=== PATIENT | male | born 1965 | race Caucasian/White ===

== ENCOUNTER → 2023-12-01 | Outpatient (CLI) | payer BC ==
[2023-12-01 09:29] LABS: ALT 14 U/L (4-49); AST 15 U/L (17-59); African American GFR (CKD) 16 (>60 ml/min/1.73 sqM); Albumin 3.5 g/dL (3.5-5.0); Albumin/Globulin Ratio 1.3; Alkaline Phosphatase 135 U/L (38-126); Anion Gap 14 mmol/L; Blood Urea Nitrogen 55 mg/dL (9-20); Calcium 8.7 mg/dL (8.4-10.2); Carbon Dioxide 19 mmol/L (22-30); Chloride 106 mmol/L (98-107); Globulin 2.8 g/dL; Glucose 168 mg/dL (74-99); Magnesium 1.9 mg/dL (1.6-2.3); Non-African American GFR(CKD) 14 (>60 ml/min/1.73 sqM); Potassium 4.5 mmol/L (3.5-5.1); Sodium 139 mmol/L (137-145); Total Bilirubin 0.8 mg/dL (0.2-1.3); Total Protein 6.3 g/dL (6.3-8.2)
[2023-12-01 09:34] LABS: NT-Pro-B-Type Natriuretic Pept 12800 pg/mL
[2023-12-01 11:12] LABS: HCT 37.8 % (39.6-50.0); HGB 11.5 g/dL (13.0-17.0); MCH 26.8 pg (27.0-32.0); MCHC 30.4 g/dL (32.0-37.0); MCV 88.1 FL (80.0-97.0); Mean Platelet Volume 11.8 FL (9.5-12.2); NRBC Per 100 WBC 0 X 10*3/uL (0.00-0.01); Platelet Count 90 X 10*3/uL (140-440); RBC 4.29 X 10*6/uL (4.40-5.60); RDW 13.9 % (11.5-14.5); WBC 9.04 X 10*3/uL (4.50-10.00)
[2023-12-01 16:16] LABS: LDL Cholesterol,Calculated 71.4 mg/dL (0.0-131.0)
== END | disposition home or self-care (01) ==
LOC: LABPAT 07:49
PROVIDERS: ATTEND Student in an Organized Health Care Education/Training Program
DX: Z01.812 Encounter for preprocedural laboratory examination (principal); R07.9 Chest pain, unspecified; R06.02 Shortness of breath
CPT/HCPCS: 36415; 80053; 80061; 83036; 83735; 83880; 84443; 85027

== ENCOUNTER → 2023-12-01 | Outpatient (CLI) | payer BC | END | disposition home or self-care (01) | LOC: LABWHC1 07:47 | PROVIDERS: ATTEND Student in an Organized Health Care Education/Training Program | DX: Z53.9 Procedure and treatment not carried out, unspecified reason (principal) ==

== ENCOUNTER 2023-12-16 11:54 | Inpatient (IN) | payer BC ==
[2023-12-16 12:26] LABS: Basophils # (A) 0.1 k/uL (0-0.2); Basophils % (A) 1 %; Eosinophils # (A) 0.2 k/uL (0-0.7); Eosinophils % (A) 3 %; HCT 36.1 % (39.0-53.0); HGB 11.3 gm/dL (13.0-17.5); Hypochromasia Slight; Lymphocytes # (A) 1.7 k/uL (1.0-4.8); Lymphocytes % (A) 20 %; MCH 27.4 pg (25.0-35.0); MCHC 31.4 g/dL (31.0-37.0); MCV 87.3 fL (80.0-100.0); Mean Platelet Volume 7.9; Monocytes # (A) 0.5 k/uL (0-1.0); Monocytes % (A) 6 %; Neutrophils # (A) 5.9 k/uL (1.3-7.7); Neutrophils % (A) 69 %; Platelet Count 196 k/uL (150-450); RBC 4.14 m/uL (4.30-5.90); RDW 14.5 % (11.5-15.5); WBC 8.5 k/uL (3.8-10.6)
[2023-12-16] MEDS ORDERED: SODIUM CHLORIDE 0.9% 500 ML 500 ML IV STA (12:32)
--- NOTE | 2023-12-16 12:43 | ED ---
Recheck HPI - General Chief Complaint: Recheck/Abnormal Lab/Rx Stated Complaint: abn labs Time Seen by Provider: 12/16/23 12:31 Source: patient, RN notes reviewed, old records reviewed Mode of arrival: ambulatory Limitations: no limitations - History of Present Illness Initial Comments: This is a 58-year-old male to the ER for evaluation today. Patient presents today for evaluation regards to abnormal outpatient lab testing. Patient does have elevated renal function and does have history of blood pressure diabetes. Patient Dese for abnormal outpatient lab tests. He is asymptomatic but states he has been feeling terrible lately Complaint: abnormal lab -: unknown Context: called for abnormal lab result Associated Symptoms: none Treatments Prior to Arrival: other - Related Data Home Medications Medication Instructions Recorded Confirmed Atorvastatin [Lipitor] 40 mg PO DAILY 12/14/23 12/16/23 Metoprolol Succinate [Metoprolol 25 mg PO DAILY 12/14/23 12/16/23 Succinate ER] Aspirin EC [Ecotrin] 650 mg PO ONCE 12/16/23 12/16/23 Previous Rx's Medication Instructions Recorded Calcium Acetate [PhosLo] 667 mg PO TID-W/MEALS 30 Days #90 12/20/23 tab Furosemide [Lasix] 20 mg PO DAILY 90 Days #90 tab 12/20/23 Insulin Glargine,Hum.rec.anlog 10 units SQ DAILY 90 Days #90 each 12/20/23 [Toujeo Solostar] Ipratropium-Albuterol Nebulize 3 ml INHALATION RT-QID 30 Days 12/20/23 [Duoneb 0.5 mg-3 mg/3 ml Soln] #120 each Isosorbide Mononitrate ER [Imdur] 30 mg PO DAILY 30 Days #30 tab 12/20/23 Pantoprazole [Protonix] 40 mg PO AC-BID 30 Days #60 tab 12/20/23 Sodium Bicarbonate Tab 650 mg PO BID 90 Days #180 tab 12/20/23 hydrALAZINE HCL [Apresoline] 50 mg PO TID 30 Days #90 tab 12/20/23 Allergies Allergy/AdvReac Type Severity Reaction Status Date / Time No Known Allergies Allergy Verified 12/16/23 15:18 Review of Systems ROS Statement: Those systems with pertinent positive or pertinent negative responses have been documented in the HPI. ROS Other: All systems not noted in ROS Statement are negative. Past Medical History Past Medical History: Diabetes Mellitus, Hypertension Additional Past Medical History / Comment(s): SOB & tires easily. Fx. tibia, hx. of infection on back of neck- not sure what it was. History of Any Multi-Drug Resistant Organisms: None Reported Past Surgical History: No Surgical Hx Reported Additional Past Surgical History / Comment(s): [place] teeth, Past Anesthesia/Blood Transfusion Reactions: No Reported Reaction Past Psychological History: ADD/ADHD, PTSD Smoking Status: Never smoker Past Alcohol Use History: Occasional Past Drug Use History: None Reported - Past Family History Mother Family Medical History: No Reported History General Exam Limitations: no limitations General appearance: alert, in no apparent distress, anxious Head exam: Present: atraumatic, normocephalic, normal inspection Eye exam: Present: normal appearance, PERRL, EOMI. Absent: scleral icterus, conjunctival injection, periorbital swelling ENT exam: Present: normal exam, mucous membranes moist Neck exam: Present: normal inspection. Absent: tenderness, meningismus, lymphadenopathy Respiratory exam: Present: normal lung sounds bilaterally. Absent: respiratory distress, wheezes, rales, rhonchi, stridor Cardiovascular Exam: Present: regular rate, normal rhythm, normal heart sounds. Absent: systolic murmur, diastolic murmur, rubs, gallop, clicks GI/Abdominal exam: Present: soft, normal bowel sounds. Absent: distended, tenderness, guarding, rebound, rigid Extremities exam: Present: normal inspection, full ROM, normal capillary refill. Absent: tenderness, pedal edema, joint swelling, calf tenderness Back exam: Present: normal inspection Neurological exam: Present: alert, oriented X3, CN II-XII intact Psychiatric exam: Present: normal affect, normal mood Skin exam: Present: warm, dry, intact, normal color. Absent: rash Course Vital Signs 12/16/23 12/16/23 12/16/23 11:58 13:00 16:00 Temperature 98.5 F Pulse Rate 81 86 79 Respiratory 20 16 16 Rate Blood Pressure 141/74 145/80 152/92 O2 Sat by Pulse 97 98 98 Oximetry 12/16/23 12/16/23 17:00 21:00 Temperature Pulse Rate 75 84 Respiratory 16 18 Rate Blood Pressure 145/93 154/92 O2 Sat by Pulse 98 97 Oximetry - Reevaluation(s) Reevaluation #1: 12/16/23 15:38 medical record is reviewed Reevaluation #2: 12/16/23 15:38 patients sumptoms unchanged Reevaluation #3: 12/16/23 15:38 patient informed of results and questions answered Reevaluation #4: 12/16/23 13:27 Was pt. sent in by a medical professional or institution (, [facility], [facility]OL [facility]ER, urgent care, hospital, or jail...) When possible be specific @ -no Did you speak to anyone other than the patient for history (EMS, parent, family, police, friend...)? What history was obtained from this source @ -no Did you review nursing and triage notes (agree or disagree)? Why? @ -agree Are old charts reviewed (outside hosp., previous admission, EMS record, old EKG, old radiological studies, urgent care reports/EKG's, jail records)? Report findings @ -yes Differential Diagnosis (chest pain, altered mental status, abdominal pain women, abdominal pain men, vaginal bleeding, weakness, fever, dyspnea, syncope, headache, dizziness, GI bleed, back pain, seizure, CVA, palpatations, mental health, musculoskeletal)? @ -prior EKG interpreted by me (3pts min.). @ -yes X-rays interpreted by me (1pt min.). @ -yes negative for acute disease CT interpreted by me (1pt min.). @ -no U/S interpreted by me (1pt. min.). @ -no What testing was considered but not performed or refused? (CT, X-rays, U/S, labs)? Why? @ -none What meds were considered but not given or refused? Why? @ -none Did you discuss the management of the patient with other professionals (prof lomax i.e. , [facility], WOOL SAMPLER, lab, RT, psych nurse, social media assistant, organic chemistry professor, teacher, diplomatic officer, trimming caser)? Give summary @ -no Was smoking cessation discussed for >3mins.? @ -no Was critical care preformed (if so, how long)? @ -no Were there social determinants of health that impacted care today? How? (Homelessness, low income, unemployed, alcoholism, drug addiction, transportation, low edu. Level, literacy, decrease access to med. care, fci, rehab)? @ -none Was there de-escalation of care discussed even if they declined (Discuss DNR or withdrawal of care, Hospice)? DNR status @ -no What co-morbidities impacted this encounter? (DM, HTN, Smoking, COPD, CAD, Cancer, CVA, ARF, Chemo, Hep., AIDS, mental health diagnosis, sleep apnea, morbid obesity)? @ -none Was patient admitted / discharged? Hospital course, mention meds given and route, prescriptions, significant lab abnormalities, going to OR and other pertinent info. @ - 58 male with increasing worsening renal function. Patient sent to the ER for evaluation of abnormal outpatient lab testing and labs here in the emergency department are consistent with outpatient testing, patient will be admitted for nephrology evaluation and treatment Admitted Undiagnosed new problem with uncertain prognosis? @ -no Drug Therapy requiring intensive monitoring for toxicity (Heparin, Nitro, Insulin, Cardizem)? @ -no Were any procedures done? @ -no Diagnosis/symptom? @ -Acute kidney injury acute renal failure hypertension diabetes Acute, or Chronic, or Acute on Chronic? @ -Acute Uncomplicated (without systemic symptoms) or Complicated (systemic symptoms)? @ -Complicated Side effects of treatment? @ -no Exacerbation, Progression, or Severe Exacerbation? @ -exacerbation Poses a threat to life or bodily function? How? (Chest pain, USA, UT, pneumonia, PE, COPD, DKA, ARF, appy, cholecystitis, CVA, Diverticulitis, Homicidal, Suicidal, threat to staff... and all critical care pts) @ -yes with significant electrode abnormalities Reevaluation #5: Differential Weakness: Hypoglycemia, shock, sepsis, hyponatremia, anemia, infection, UT, ETOH, adverse medicine reaction, overdose, stroke, this is not meant to be an all-inclusive list. - Consultations Consultation #1: spoke w Dr Margarette vital for admission Medical Decision Making - Medical Decision Making 58 male with increasing worsening renal function. Patient sent to the ER for evaluation of abnormal outpatient lab testing and labs here in the emergency department are consistent with outpatient testing, patient will be admitted for nephrology evaluation and treatment - Lab Data Result diagrams: 12/21/23 06:15 12/21/23 06:15 Lab Results 12/16/23 12/16/23 12/16/23 Range/Units 12:19 12:19 12:19 WBC 8.5 (3.8-10.6) k/uL RBC 4.14 L (4.30-5.90) m/uL Hgb 11.3 L (13.0-17.5) gm/dL Hct 36.1 L (39.0-53.0) % MCV 87.3 (80.0-100.0) fL MCH 27.4 (25.0-35.0) pg MCHC 31.4 (31.0-37.0) g/dL RDW 14.5 (11.5-15.5) % Plt Count 196 (150-450) k/uL MPV 7.9 Neutrophils % 69 % Lymphocytes % 20 % Monocytes % 6 % Eosinophils % 3 % Basophils % 1 % Neutrophils # 5.9 (1.3-7.7) k/uL Lymphocytes # 1.7 (1.0-4.8) k/uL Monocytes # 0.5 (0-1.0) k/uL Eosinophils # 0.2 (0-0.7) k/uL Basophils # 0.1 (0-0.2) k/uL Hypochromasia Slight PT 10.1 (10.0-12.5) sec INR 0.9 (<1.2) APTT 24.2 (22.0-30.0) sec Sodium 136 L (137-145) mmol/L Potassium 5.2 H (3.5-5.1) mmol/L Chloride 110 H (98-107) mmol/L Carbon Dioxide 17 L (22-30) mmol/L Anion Gap 9 mmol/L BUN 65 H (9-20) mg/dL Creatinine 4.81 H (0.66-1.25) mg/dL Est GFR (CKD-EPI)AfAm 14 (>60 ml/min/1.73 sqM) Est GFR (CKD-EPI)NonAf 12 (>60 ml/min/1.73 sqM) Glucose 208 H (74-99) mg/dL Calcium 8.2 L (8.4-10.2) mg/dL Phosphorus (2.5-4.5) mg/dL Magnesium 2.1 (1.6-2.3) mg/dL Total Bilirubin 0.7 (0.2-1.3) mg/dL AST 17 (17-59) U/L ALT 16 (4-49) U/L Alkaline Phosphatase 106 (38-126) U/L Troponin I (0.000-0.034) ng/mL NT-Pro-B Natriuret Pep 81123 pg/mL Total Protein 6.0 L (6.3-8.2) g/dL Albumin 3.2 L (3.5-5.0) g/dL 12/16/23 12/16/23 Range/Units 12:19 12:32 WBC (3.8-10.6) k/uL RBC (4.30-5.90) m/uL Hgb (13.0-17.5) gm/dL Hct (39.0-53.0) % MCV (80.0-100.0) fL MCH (25.0-35.0) pg MCHC (31.0-37.0) g/dL RDW (11.5-15.5) % Plt Count (150-450) k/uL MPV Neutrophils % % Lymphocytes % % Monocytes % % Eosinophils % % Basophils % % Neutrophils # (1.3-7.7) k/uL Lymphocytes # (1.0-4.8) k/uL Monocytes # (0-1.0) k/uL Eosinophils # (0-0.7) k/uL Basophils # (0-0.2) k/uL Hypochromasia PT (10.0-12.5) sec INR (<1.2) APTT (22.0-30.0) sec Sodium (137-145) mmol/L Potassium (3.5-5.1) mmol/L Chloride (98-107) mmol/L Carbon Dioxide (22-30) mmol/L Anion Gap mmol/L BUN (9-20) mg/dL Creatinine (0.66-1.25) mg/dL Est GFR (CKD-EPI)AfAm (>60 ml/min/1.73 sqM) Est GFR (CKD-EPI)NonAf (>60 ml/min/1.73 sqM) Glucose (74-99) mg/dL Calcium (8.4-10.2) mg/dL Phosphorus 5.7 H (2.5-4.5) mg/dL Magnesium (1.6-2.3) mg/dL Total Bilirubin (0.2-1.3) mg/dL AST (17-59) U/L ALT (4-49) U/L Alkaline Phosphatase (38-126) U/L Troponin I 0.014 (0.000-0.034) ng/mL NT-Pro-B Natriuret Pep pg/mL Total Protein (6.3-8.2) g/dL Albumin (3.5-5.0) g/dL - EKG Data -: EKG Interpreted by Me (EKG is sinus 76 NC 146 QRS 110 QTc 440) - Radiology Data Radiology results: report reviewed (Chest x-ray is negative for acute disease), image reviewed Disposition Clinical Impression: Renal failure, ARF (acute renal failure), MAT (acute kidney injury), Hyperkalemia Disposition: ADMITTED IP TO THIS [facility] Condition: Fair Is patient prescribed a controlled substance at d/c from ED?: No Time of Disposition: 15:00
[2023-12-16 12:57] LABS: ALT 16 U/L (4-49); AST 17 U/L (17-59); African American GFR (CKD) 14 (>60 ml/min/1.73 sqM); Albumin 3.2 g/dL (3.5-5.0); Alkaline Phosphatase 106 U/L (38-126); Anion Gap 9 mmol/L; Blood Urea Nitrogen 65 mg/dL (9-20); Calcium 8.2 mg/dL (8.4-10.2); Carbon Dioxide 17 mmol/L (22-30); Chloride 110 mmol/L (98-107); Glucose 208 mg/dL (74-99); INR 0.9 (<1.2); Magnesium 2.1 mg/dL (1.6-2.3); Non-African American GFR(CKD) 12 (>60 ml/min/1.73 sqM); Partial Thromboplastin Time 24.2 sec (22.0-30.0); Potassium 5.2 mmol/L (3.5-5.1); Prothrombin Time 10.1 sec (10.0-12.5); Sodium 136 mmol/L (137-145); Total Bilirubin 0.7 mg/dL (0.2-1.3)
[2023-12-16 13:05] LABS: NT-Pro-B-Type Natriuretic Pept 13200 pg/mL
--- NOTE | 2023-12-16 13:58 | XR ---
EXAMINATION TYPE: XR chest 2V DATE OF EXAM: 12/16/2023 COMPARISON: NONE TECHNIQUE: PA and lateral views submitted. HISTORY: Difficulty in breathing FINDINGS: The lungs are clear and there is no pneumothorax, pleural effusion, or focal pneumonia. Heart size normal and no overt failure. Osseous structures demonstrate hypertrophic and degenerative changes of the spine. IMPRESSION: 1. No acute process.
[2023-12-16] MEDS ORDERED: NALOXONE 0.4 MG/ML 1 ML VIAL IV PRN (15:35)
[2023-12-16] MEDS ORDERED: NON FORMULARY DRUG (Aspirin Ec 325 MG Tab) PO SCH (17:00)
[2023-12-16] MEDS: SODIUM CHLORIDE 0.9% 1,000 ML IV SCH ×2 (18:33→23:23)
--- NOTE | 2023-12-16 19:58 | CT ---
EXAMINATION TYPE: CT chest wo con DATE OF EXAM: 12/16/2023 COMPARISON: None HISTORY: pleural effusion CT DLP: 739.[address] of the chest was performed with lung and mediastinal window settings submitted. The la ck of contrast limits evaluation of the vascular, mediastinal and parenchymal structures including th e upper abdomen. LUNGS: The lungs are clear and free of infiltrate. No atelectasis. No pulmonary nodule or mass is de tected. Small bilateral pleural effusions noted right greater than left. Maximal right-sided AP dimen tianna of 1.5 cm in maximal left-sided AP dimension of [address] evidence of interstitial lung diseas e. MEDIASTINUM/LEANDRO: Thoracic aorta is of normal caliber with limited evaluation given lack of contrast . The heart is not enlarged. No evidence for mediastinal mass. No lymph nodes greater than 1cm. UPPER ABDOMEN: No significant abnormality is seen. OTHER: No significant other abnormality. IMPRESSION: 1. Small bilateral pleural effusions.
[2023-12-16 22:04] LABS: Glucose,Whole Blood 153 mg/dL (70-110)
--- NOTE | 2023-12-17 01:38 | HP ---
HISTORY AND PHYSICAL HISTORY OF PRESENT ILLNESS: This is a 58-year-old in the emergency room for evaluation for abnormal outpatient testing, elevated renal function, history of blood pressure, diabetes, and no outpatient test. He is asymptomatic. Home medications are Lipitor, metoprolol, Demadex, metformin, Ecotrin, Cozaar. Allergies are negative. He has an elevated BNP, real high, short of breath, tires easy. He has a history of ADHD and PTSD. ALLERGIES: Negative. FAMILY HISTORY: Mother is negative. PHYSICAL EXAMINATION: GENERAL: Alert, in no acute distress. HEENT: Normocephalic, atraumatic. LUNGS: Normal breath sounds. Decreased breath sounds. CARDIOVASCULAR: S1, S2. ABDOMEN: Soft, nontender. HEENT: Pupils equal, round, reactive. Cranial nerves intact. NEUROLOGIC: Alert and orient x3. VITAL SIGNS: Blood pressure 141/145, respiratory rate 48, temp 98.5, pulse is 16-20. Fair mood and affect. The patient is admitted with acute renal insufficiency, acute on chronic, diabetes, hypertension, hyperkalemia, acute on chronic anemia with hematocrit of 4.81, hyperphosphatemia, acute renal failure, acute kidney injury, hyperkalemia, sinus rhythm. Continue current treatments. Follow up in THE next 24 to 48 hours. Workup progressing. MMODL / IJN: [id number] /
[2023-12-17 07:26] LABS: Glucose,Whole Blood 130 mg/dL (70-110)
[2023-12-17] MEDS ORDERED: LOSARTAN 25 MG TAB PO SCH (09:00)
[2023-12-17] MEDS ORDERED: TORSEMIDE 20 MG TAB PO SCH (09:00)
--- NOTE | 2023-12-17 10:05 | CA ---
Transthoracic Echo Report Name: Seferino Byrd Age: 58 Gender: M : 1965 Exam Date: 12/16/2023 18:31 Exam Location: [facility] Ht (in): 73 Wt (lb): 244 Ordering Physician: Cecil Pfeiffer MD Attending/Referring Phys: Digital Pre Press Operator Mariam Roland RD Procedure CPT: Indications: chf Cardiac Hx: Technical Quality: Fair Contrast 1: Definity Total Dose (mL): 2 Contrast 2: Total Dose (mL): MEASUREMENTS (Male / Female) Normal Values 2D ECHO LV Diastolic Diameter PLAX 5.0 cm 4.2 - 5.9 / 3.9 - 5.3 cm LV Systolic Diameter PLAX 4.7 cm IVS Diastolic Thickness 1.2 cm 0.6 - 1.0 / 0.6 - 0.9 cm LVPW Diastolic Thickness 1.3 cm 0.6 - 1.0 / 0.6 - 0.9 cm LV Relative Wall Thickness 0.5 RV Internal Dim ED PLAX 2.8 cm LVOT Diameter 1.9 cm Aortic Root Diameter 2.9 cm LA Systolic Diameter LX 3.8 cm 3.0 - 4.0 / 2.7 - 3.8 cm LV Diastolic Volume MOD BP 107.1 cm??? 67 - 155 / 56 - 104 cm??? LV Systolic Volume MOD BP 69.7 cm??? - 58 / 19 - 49 cm??? LV Ejection Fraction MOD BP 34.9 % >= 55 % LV Cardiac Index MOD BP 1237.8 cm???/min???m??? LV Diastolic Volume MOD 4C 130.1 cm??? LV Systolic Volume MOD 4C 78.2 cm??? LV Ejection Fraction MOD 4C 39.9 % LV Cardiac Index MOD 4C 1720.1 cm???/min???m??? LV Diastolic Length 4C 8.2 cm LV Systolic Length 4C 7.4 cm LV Diastolic Volume MOD 2C 71.2 cm??? LV Systolic Volume MOD 2C 55.7 cm??? LV Ejection Fraction MOD 2C 21.8 % LV Cardiac Index MOD 2C 513.3 cm???/min???m??? LV Diastolic Length 2C 6.6 cm LV Systolic Length 2C 6.6 cm LA Volume 67.7 cm??? 18 - 58 / 22 - 52 cm??? LA Volume Index 28.0 cm???/m??? 16 - 28 cm???/m??? DOPPLER AV Peak Velocity 75.6 cm/s AV Peak Gradient 2.3 mmHg LVOT Peak Velocity 69.8 cm/s LVOT Peak Gradient 2.0 mmHg LVOT Velocity Time Integral 14.3 cm LVOT Stroke Volume 41.6 cm??? LVOT Stroke Volume Index 17.8 ml/m??? LVOT Cardiac Index 1376.1 cm???/min???m??? AV Area Cont Eq pk 2.7 cm??? MV Peak Velocity 104.2 cm/s MV Peak Gradient 4.3 mmHg MV Mean Velocity 50.4 cm/s MV Mean Gradient 1.3 mmHg MV Velocity Time Integral 26.7 cm MR Peak Velocity 433.3 cm/s MR Peak Gradient 75.1 mmHg Mitral E Point Velocity 100.9 cm/s Mitral A Point Velocity 43.0 cm/s Mitral E to A Ratio 2.3 MV Deceleration Time 153.1 ms MV E' Velocity 5.9 cm/s Mitral E to MV E' Ratio 17.1 TR Peak Velocity 267.3 cm/s TR Peak Gradient 28.6 mmHg Right Ventricular Systolic Press 33.6 mmHg PV Peak Velocity 56.5 cm/s PV Peak Gradient 1.3 mmHg FINDINGS Left Ventricle Increased LV size. Normal LV wall thickness. Severe global LV systolic dysfunction. LVEF estimated at 20-25%. Grade III diastolic dysfunction Right Ventricle Normal right ventricular size. RVSP= 34mmHg. Right Atrium Moderate RV dilatation Left Atrium Moderate LA dilatation. Elevated LA pressures Mitral Valve Structurally normal mitral valve. Moderate functional MR Aortic Valve Trileaflet aortic valve. No aortic stenosis. No aortic regurgitation. Tricuspid Valve Structurally normal tricuspid valve. Mild TR. Pulmonic Valve Pulmonic valve not well visualized. Mild PI. Pericardium No pericardial effusion Aorta Normal size aortic root CONCLUSIONS Severe LV systolic dysfunction LVEF estimated at 20-25% Mildly increased LV size Moderate biatrial dilatation. Elevated LA pressures Moderate functional MR Previewed by: Dr Florentino Sanchez (Electronically Signed) Final Date: 17 December 2023 10:04
[2023-12-17] MEDS: METOPROLOL SUCCINATE (ER) 25 MG TAB.ER.24H PO SCH (10:42)
[2023-12-17] MEDS: ATORVASTATIN 40 MG TAB PO SCH (10:42)
[2023-12-17] MEDS ORDERED: hydrALAZINE HCL 20 MG/ML 1 ML VIAL IVP PRN (11:43)
--- NOTE | 2023-12-17 11:44 | P.NPCON ---
History of Present Illness - Reason for Consult acute renal failure - History of Present Illness Reason for consultation: Acute kidney injury History of present illness: Patient is a 58-year-old male seen in renal consultation for acute kidney injury. Unknown baseline renal function. Patient states he did not see a physician for several years. He recently got and got insurance through his . Patient went to his [facility] and noticed exertional dyspnea even with walking short distances while in [place]. He was evaluated at an urgent care clinic and was referred to see cardiology. He was scheduled to get a cardiac catheterization done but it was canceled because blood work revealed a cute kidney injury. He was subsequently admitted to the hospital. Creatinine this admission has been 4.8. He denies use of nonsteroidals. He does have long-standing history of diabetes. He was on losartan and metformin outpatient which are both currently held. He admits to good urine output. No hematuria or dysuria. He does admit to edema in his ankles. Denies family history of renal disease. Denies history of coronary artery disease. Oral intake is good. Patient's echocardiogram shows ejection fraction of 20-25%. Small bilateral pleural effusions noted on chest CT. He is currently on IV fluids. Vital signs are stable. General: No acute distress. HEENT: Head exam is unremarkable. LUNGS: No audible rhonchi or wheezes. HEART: Rate and Rhythm are regular. ABDOMEN: Nontender. EXTREMITITES: 1+ edema. Past Medical History Past Medical History: Diabetes Mellitus, Hypertension Additional Past Medical History / Comment(s): SOB & tires easily. Fx. tibia, hx. of infection on back of neck- not sure what it was. History of Any Multi-Drug Resistant Organisms: None Reported Past Surgical History: No Surgical Hx Reported Additional Past Surgical History / Comment(s): [place] teeth, Past Anesthesia/Blood Transfusion Reactions: No Reported Reaction Past Psychological History: ADD/ADHD, PTSD Additional Psychological History / Comment(s): Hx. of Smoking Status: Never smoker Past Alcohol Use History: Occasional Past Drug Use History: None Reported - Past Family History Mother Family Medical History: No Reported History Medications and Allergies Home Medications Medication Instructions Recorded Confirmed Type Atorvastatin [Lipitor] 40 mg PO DAILY 12/14/23 12/16/23 History Metoprolol Succinate [Metoprolol 25 mg PO DAILY 12/14/23 12/16/23 History Succinate ER] Torsemide [Demadex] 20 mg PO Q2D 12/14/23 12/16/23 History metFORMIN HCL 500 mg PO BID 12/14/23 12/16/23 History Aspirin EC [Ecotrin] 650 mg PO ONCE 12/16/23 12/16/23 History Losartan [Cozaar] 25 mg PO DAILY 12/16/23 12/16/23 History Allergies Allergy/AdvReac Type Severity Reaction Status Date / Time No Known Allergies Allergy Verified 12/16/23 15:18 Physical Exam Vitals: Vital Signs Temp Pulse Pulse Resp BP BP Pulse Ox 12/17/23 07:25 98.2 F 74 16 154/88 96 12/17/23 01:30 97.9 F 80 17 148/89 94 L 12/16/23 23:20 97.7 F 82 16 152/84 95 12/16/23 21:00 84 18 154/92 97 12/16/23 17:00 75 16 145/93 98 12/16/23 16:00 79 16 152/92 98 12/16/23 13:00 86 16 145/80 98 12/16/23 11:58 98.5 F 81 20 141/74 97 Intake and Output 12/16/23 12/17/23 12/17/23 22:59 06:59 14:59 Other: Weight 110.677 kg Results - Lab Results Most recent lab results Calcium 8.2 mg/dL (8.4-10.2) L 12/16/23 12:19 Phosphorus 5.7 mg/dL (2.5-4.5) H 12/16/23 12:32 Magnesium 2.1 mg/dL (1.6-2.3) 12/16/23 12:19 12/16/23 12:19 12/16/23 12:19 Assessment and Plan Plan: Assessment: 1. Acute kidney injury secondary to ATN secondary to cardiorenal syndrome versus underlying chronic kidney disease. Unknown baseline renal function. Creatinine this admission 4.8. Patient did not see a physician for several years. 2. Acute on chronic systolic CHF with ejection fraction of 25-30%. 3. Volume overload. 4. Diabetes mellitus. 5. Metabolic acidosis secondary to acute kidney injury. 6. Benign hypertension. Plan: Stop IV fluids. Add IV Lasix 60 mg twice daily. Metoprolol also started. Check UA. Check renal ultrasound. Check bladder scan to make sure no urinary retention. Add oral bicarb. Continue to monitor renal function and urine output. Continue to assess daily for need for renal replacement therapy. Thank you for the consultation. I will continue to follow this patient with you during his hospital stay.
[2023-12-17 11:53] LABS: Glucose,Whole Blood 146 mg/dL (70-110)
[2023-12-17 12:44] LABS: Basophils # (A) 0.08 X 10*3/uL (0.00-0.10); Eosinophils # (A) 0.15 X 10*3/uL (0.04-0.35); Eosinophils % (A) 1.9 %; HCT 39.3 % (39.6-50.0); HGB 11.9 g/dL (13.0-17.0); Lymphocytes # (A) 1.43 X 10*3/uL (0.90-5.00); Lymphocytes % (A) 18.5 %; MCH 26.6 pg (27.0-32.0); MCHC 30.3 g/dL (32.0-37.0); MCV 87.7 FL (80.0-97.0); Mean Platelet Volume 11.5 FL (9.5-12.2); Monocytes # (A) 0.57 X 10*3/uL (0.20-1.00); Monocytes % (A) 7.4 %; NRBC Per 100 WBC 0 X 10*3/uL (0.00-0.01); Neutrophils # (A) 5.49 X 10*3/uL (1.80-7.70); Neutrophils % (A) 70.9 %; Platelet Count 128 X 10*3/uL (140-440); RBC 4.48 X 10*6/uL (4.40-5.60); RDW 14.4 % (11.5-14.5); WBC 7.74 X 10*3/uL (4.50-10.00)
[2023-12-17 12:46] LABS: ALT 11 U/L (10-49); AST 10 U/L (14-35); Albumin 3.6 g/dL (3.8-4.9); Albumin/Globulin Ratio 1.64 Ratio (1.60-3.17); Alkaline Phosphatase 105 U/L (41-126); BUN/Creat Ratio 12.35 Ratio (12.00-20.00); Blood Urea Nitrogen 59.3 mg/dL (9.0-27.0); Calcium 8.8 mg/dL (8.7-10.3); Carbon Dioxide 19.3 mmol/L (21.6-31.8); Chloride 108 mmol/L (96-109); Globulin 2.2 g/dL (1.6-3.3); Glucose 134 mg/dL (70-110); Phosphorus 5.5 mg/dL (2.4-5.1); Potassium 4.7 mmol/L (3.5-5.5); Sodium 139 mmol/L (135-145); Total Bilirubin 0.6 mg/dL (0.3-1.2); Total Protein 5.8 g/dL (6.2-8.2)
[2023-12-17] MEDS: FUROSEMIDE 10 MG/ML 10 ML VIAL IV SCH ×2 (12:54→20:35)
[2023-12-17] MEDS: SODIUM BICARBONATE TAB 650 MG TAB PO SCH ×2 (13:30→20:35)
--- NOTE | 2023-12-17 14:19 | US ---
EXAMINATION TYPE: US renals and bladder DATE OF EXAM: 12/17/2023 COMPARISON: NONE CLINICAL INDICATION: Male, 58 years old with history of mat; MAT EXAM MEASUREMENTS: Right Kidney: 12.1x5.6x5.6 cm Left Kidney: 11.7x6.3x4.5 cm Right Kidney: 0.5cm stone vs. calcified vessel noted Left Kidney: small 2.0x1.8x1.7cm cystic area measured at lateral/mid kidney Bladder: wnl Bilateral Jets seen: Yes No nephrolithiasis is seen. The urinary bladder is anechoic. Bilateral ureteral jets are seen. IMPRESSION: Small cyst in the left kidney is noted. Renal calculus versus calcified vessel.
[2023-12-17 17:15] LABS: Glucose,Whole Blood 171 mg/dL (70-110)
[2023-12-17 18:19] LABS: Appearance,Urine Clear (Clear); Bilirubin,Urine Negative (Negative); Blood,Urine Trace (Negative); Color,Urine Colorless; Glucose,Urine (UA) 1+ (Negative); Ketones,Urine Negative (Negative); Leukocyte Esterase,Urine Negative (Negative); Mucus,Urine Rare /hpf; Nitrite,Urine Negative (Negative); PH, Urine 5.5 (5.0-8.0); Protein,Urine 1+ (Negative); RBC,Urine 1 /hpf (0-5); Specific Gravity,Urine 1.005 (1.001-1.035); Squamous Epithelial Cell,Urine <1 /hpf (0-4); Urobilinogen,Urine <2.0 mg/dL (<2.0)
--- NOTE | 2023-12-17 18:32 | P.CRDCN ---
History of Present Illness Consult date: 12/17/23 History of present illness: HISTORY OF PRESENTING ILLNESS 58 year old past medical history of hypertension, type 2 diabetes who saw me in clinic in August with worsening fatigue and shortness of breath. His echocardiogram at that time showed an EF of 40%. I started him on losartan 25 mg and Lasix 40 mg which helped patient's clinical symptoms. On the follow-up appointment in late October we decided on proceeding with a heart catheteriza tion procedure because of abnormally low EF. At the time of prescribing him losartan and Lasix as recommended to obtain his BNP levels which patient never performed. On his follow-up appointment I gave him another prescription. His BMP levels checked. This was done on 12/01/2023. Labs at that time showed severely reduced GFR with creatinine of 4. These results were never indicated to me. On his day of heart catheterization on 12/16/2023 I reviewed the patient's labs with a creatinine of 4. Repeat creatinine was at 4. Due to this I recommended patient go to the ER and get admitted. Patient reports that he still making urine. He denies having any active chest pain chest pressure or increased worsening shortness of breath than before. An echocardiogram performed on this admission shows an EF of 20-25%, with evidence of increased LA pressures Creatinine 4.8, BUN 59, phosphorous 5.5, hemoglobin 11.9, REVIEW OF SYSTEMS 14 point review of system is negative except what is mentioned above in HPI. PHYSICAL EXAMINATION Vital signs reviewed. Head: Normocephalic. Eyes: Sclerae nonicteric. Neck: Brisk carotid upstroke, mildly elevated. Lungs: Mild crackles in bilateral bases Heart: Regular rate and rhythm, S1-S2, no S3, no murmur or rub. Abdomen: Soft nontender, distended abdomen. Extremities: No edema, intact distal pulses. Neuro: Alert, oritented, no focal deficits ASSESSMENT MAT with ATN Suspect some competent CKD from long-standing diabetes and hypertension Acute on chronic HFrEF, EF 25%, mild to moderate volume overloaded, and NYHA class III Small pericardial effusion Essential hypertension Type II Diabetes Dyslipidemia Suspected CAD, as the etiology of cardiac myopathy due to patient's risk factors PLAN Continue aspirin 81 mg, atorvastatin 40 mg Continue metoprolol 25 mg daily Start Imdur 15 mg, hydralazine 10 mg 3 times a day Consult nephrology. Evaluate for hemodialysis Performed bladder scan. Patient is not retaining urine Past Medical History Past Medical History: Diabetes Mellitus, Hypertension Additional Past Medical History / Comment(s): SOB & tires easily. Fx. tibia, hx. of infection on back of neck- not sure what it was. History of Any Multi-Drug Resistant Organisms: None Reported Past Surgical History: No Surgical Hx Reported Additional Past Surgical History / Comment(s): [place] teeth, Past Anesthesia/Blood Transfusion Reactions: No Reported Reaction Past Psychological History: ADD/ADHD, PTSD Additional Psychological History / Comment(s): Hx. of Smoking Status: Never smoker Past Alcohol Use History: Occasional Past Drug Use History: None Reported - Past Family History Mother Family Medical History: No Reported History Medications and Allergies Home Medications Medication Instructions Recorded Confirmed Type Atorvastatin [Lipitor] 40 mg PO DAILY 12/14/23 12/16/23 History Metoprolol Succinate [Metoprolol 25 mg PO DAILY 12/14/23 12/16/23 History Succinate ER] Torsemide [Demadex] 20 mg PO Q2D 12/14/23 12/16/23 History metFORMIN HCL 500 mg PO BID 12/14/23 12/16/23 History Aspirin EC [Ecotrin] 650 mg PO ONCE 12/16/23 12/16/23 History Losartan [Cozaar] 25 mg PO DAILY 12/16/23 12/16/23 History Allergies Allergy/AdvReac Type Severity Reaction Status Date / Time No Known Allergies Allergy Verified 12/16/23 15:18 Physical Exam Vitals: Vital Signs Temp Pulse Pulse Resp BP BP Pulse Ox 12/17/23 14:23 99.0 F 81 18 166/81 97 12/17/23 09:00 74 16 12/17/23 07:25 98.2 F 74 16 154/88 96 12/17/23 01:30 97.9 F 80 17 148/89 94 L 12/16/23 23:20 97.7 F 82 16 152/84 95 12/16/23 21:00 84 18 154/92 97 Intake and Output 12/17/23 12/17/23 12/17/23 06:59 14:59 22:59 Intake Total 240 Output Total 800 Balance -560 Intake: Oral 240 Output: Urine 800 Other: # Voids 1 Results 12/17/23 06:58 12/17/23 06:58 Cardiac Enzymes 12/17/23 Range/Units 06:58 AST 10 L (14-35) U/L CBC 12/17/23 Range/Units 06:58 WBC 7.74 (4.50-10.00) X 10*3/uL RBC 4.48 (4.40-5.60) X 10*6/uL Hgb 11.9 L (13.0-17.0) g/dL Hct 39.3 L (39.6-50.0) % Plt Count 128 L (140-440) X 10*3/uL Comprehensive Metabolic Panel 12/17/23 Range/Units 06:58 Sodium 139 (135-145) mmol/L Potassium 4.7 (3.5-5.5) mmol/L Chloride 108 (96-109) mmol/L Carbon Dioxide 19.3 L (21.6-31.8) mmol/L BUN 59.3 H (9.0-27.0) mg/dL Creatinine 4.8 H (0.6-1.5) mg/dL Glucose 134 H (70-110) mg/dL Calcium 8.8 (8.7-10.3) mg/dL AST 10 L (14-35) U/L ALT 11 (10-49) U/L Alkaline Phosphatase 105 (41-126) U/L Total Protein 5.8 L (6.2-8.2) g/dL Albumin 3.6 L (3.8-4.9) g/dL Current Medications Generic Name Dose Route Start Last Admin Trade Name Freq PRN Reason Stop Dose Admin Atorvastatin Calcium 40 mg 12/17/23 09:00 12/17/23 10:42 Atorvastatin 40 Mg Tab PO 40 mg DAILY [facility] Administration Furosemide 60 mg 12/17/23 11:45 12/17/23 12:54 Furosemide 10 Mg/Ml 10 Ml Vial IV 60 mg Q12HR [facility] Administration Hydralazine HCl 10 mg 12/17/23 18:45 Hydralazine Hcl 10 Mg Tab PO TID BRE[facility] Isosorbide Mononitrate 15 mg 12/17/23 18:30 Isosorbide Mononitrate Er 15 Mg Tab PO DAILY [facility] Metoprolol Succinate 25 mg 12/17/23 09:00 12/17/23 10:42 Metoprolol Succinate (Er) 25 Mg Tab.Er.24h PO 25 mg DAILY [facility] Administration Naloxone HCl 0.2 mg 12/16/23 15:35 Naloxone 0.4 Mg/Ml 1 Ml Vial IV Q2M PRN Opioid Reversal Sodium Bicarbonate 650 mg 12/17/23 11:45 12/17/23 13:30 Sodium Bicarbonate Tab 650 Mg Tab PO 650 mg BID BREON[facility] Administration Intake and Output 12/17/23 12/17/23 12/17/23 06:59 14:59 22:59 Intake Total 240 Output Total 800 Balance -560 Intake: Oral 240 Output: Urine 800 Other: # Voids 1 12/17/23 06:58 12/17/23 06:58
[2023-12-17 19:37] LABS: Glucose,Whole Blood 166 mg/dL (70-110)
[2023-12-17] MEDS: hydrALAZINE HCL 10 MG TAB PO SCH ×2 (20:35→22:34)
[2023-12-17] MEDS: ISOSORBIDE MONONITRATE ER 15 MG TAB PO SCH (20:35)
--- NOTE | 2023-12-17 21:10 | P.PN ---
Progress Note - Text Progress Note Date: 12/17/23 Hospital course: I'm rounding for Dr. Cecil Pfeiffer. 12/25/2023: Admitted with acute kidney injury. Being followed by nephrology. Denies any pain. Eating well. On IV Lasix. Active Medications Atorvastatin Calcium (Atorvastatin 40 Mg Tab) 40 mg PO DAILY [facility] Last Admin: 12/17/23 10:42 Dose: 40 mg Furosemide (Furosemide 10 Mg/Ml 10 Ml Vial) 60 mg IV Q12HR [facility] Last Admin: 12/17/23 20:35 Dose: 60 mg Hydralazine HCl (Hydralazine Hcl 10 Mg Tab) 10 mg PO TID [facility] Last Admin: 12/17/23 20:35 Dose: 10 mg Isosorbide Mononitrate (Isosorbide Mononitrate Er 15 Mg Tab) 15 mg PO DAILY [facility] Last Admin: 12/17/23 20:35 Dose: 15 mg Metoprolol Succinate (Metoprolol Succinate (Er) 25 Mg Tab.Er.24h) 25 mg PO DAILY [facility] Last Admin: 12/17/23 10:42 Dose: 25 mg Naloxone HCl (Naloxone 0.4 Mg/Ml 1 Ml Vial) 0.2 mg IV Q2M PRN PRN Reason: Opioid Reversal Sodium Bicarbonate (Sodium Bicarbonate Tab 650 Mg Tab) 650 mg PO BID [facility] Last Admin: 12/17/23 20:35 Dose: 650 mg On examination: VITAL SIGNS: [99, 81, 18, and city 6/81, 97% room air] GENERAL APPEARANCE: BMI 32.2, declining but awake and comfortable HEENT: Normal external appearance of nose and ear. Oral cavity normal EYES: Pupils equal. Conjunctiva normal. NECK: JVD not raised. Mass not palpable. RESPIRATORY: Respiratory effort normal. Lungs clear to auscultation. CARDIOVASCULAR: First and second sounds normal. No edema. ABDOMEN: Soft. Liver and spleen not palpable. No tenderness. No mass palpable. PSYCHIATRY: Alert and oriented x3. Mood and affect normal. INVESTIGATIONS, reviewed in the clinical context: Renal ultrasound: Small cyst of the left kidney. Bilateral ureteral jets are seen. 12/25/2023: White count 7.7 hemoglobin 11.9 platelets 128 potassium 4.7 BUN 59.3 creatinine 4.8 phosphorus 5.5 2-D echocardiogram: EF 20-25%. Severe global LV dysfunction. Moderate MR. Assessment and plan: Acute kidney injury secondary to ATN secondary to cardiorenal syndrome versus underlying chronic kidney disease. Unknown baseline renal function. Creatinine this admission 4.8. Patient did not see a physician for several years.: Uncontrolled Being followed by nephrology. Renal ultrasound unremarkable. - Acute on chronic systolic CHF with ejection fraction of anti-25 %.: Uncontrolled IV Lasix 60 mg every 12 -Moderate mitral regurgitation - Diabetes mellitus. Type II on oral hypoglycemic Metformin discontinued. Accu-Cheks and sliding-scale insulin. - Metabolic acidosis secondary to acute kidney injury. Sodium bicarbonate - Essential hypertension. With CK D Hydralazine. Toprol-XL -Obesity BMI 32.2 Weight loss measures. 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
[2023-12-17] MEDS: INSULIN DETEMIR (LEVEMIR) 100 UNIT/ML SYR SQ SCH (22:34)
[2023-12-18] MEDS ORDERED: DEXTROSE 50% SYRINGE 50 ML IVP PRN ×4 (07:20→07:22)
[2023-12-18 07:47] LABS: Glucose,Whole Blood 118 mg/dL (70-110)
[2023-12-18] MEDS: INSULIN ASPART (NovoLOG) 100 UNIT/ML VIAL SQ SCH ×4 (09:12→20:59)
[2023-12-18 09:23] LABS: BUN/Creat Ratio 13.69 Ratio (12.00-20.00); Blood Urea Nitrogen 65.7 mg/dL (9.0-27.0); Carbon Dioxide 19.6 mmol/L (21.6-31.8); Chloride 107 mmol/L (96-109); Glucose 117 mg/dL (70-110); Potassium 4.2 mmol/L (3.5-5.5); Sodium 138 mmol/L (135-145)
[2023-12-18] MEDS: CALCIUM ACETATE 667 MG TAB PO SCH ×3 (09:30→16:17)
[2023-12-18] MEDS: FUROSEMIDE 10 MG/ML 10 ML VIAL IV SCH ×2 (09:31→20:59)
[2023-12-18] MEDS: ATORVASTATIN 40 MG TAB PO SCH (09:31)
[2023-12-18] MEDS: ISOSORBIDE MONONITRATE ER 15 MG TAB PO SCH (09:31)
[2023-12-18] MEDS: SODIUM BICARBONATE TAB 650 MG TAB PO SCH ×2 (09:31→20:59)
[2023-12-18] MEDS: hydrALAZINE HCL 10 MG TAB PO SCH (09:32)
[2023-12-18] MEDS: METOPROLOL SUCCINATE (ER) 25 MG TAB.ER.24H PO SCH (09:32)
--- NOTE | 2023-12-18 11:15 | P.PN ---
Subjective Patient is seen in follow-up for acute kidney injury. Renal function stable this admission. On IV Lasix. Admits to good urine output. No vomiting or diarrhea. Vital signs are stable. General: No acute distress. HEENT: Head exam is unremarkable. LUNGS: No audible rhonchi or wheezes. HEART: Rate and Rhythm are regular. ABDOMEN: Nontender. EXTREMITITES: 1+ edema. Objective - Vital Signs Vital signs: Vital Signs Temp 98.7 F 12/18/23 07:44 Pulse 78 12/18/23 07:44 Resp 16 12/18/23 07:44 BP 161/92 12/18/23 07:44 Pulse Ox 96 12/18/23 07:44 FiO2 Intake & Output 12/17/23 12/18/23 12/18/23 18:59 06:59 18:59 Intake Total 240 1000 Output Total 800 Balance -560 1000 Intake: Oral 240 1000 Output: Urine 800 Other: # Voids 1 4 - Labs CBC & Chem 7: 12/17/23 06:58 12/18/23 06:18 Labs: Abnormal Lab Results - Last 24 Hours (Table) 12/17/23 12/17/23 12/17/23 Range/Units 06:58 06:58 11:52 Hgb 11.9 L (13.0-17.0) g/dL Hct 39.3 L (39.6-50.0) % MCH 26.6 L (27.0-32.0) pg MCHC 30.3 L (32.0-37.0) g/dL Plt Count 128 L (140-440) X 10*3/uL Carbon Dioxide 19.3 L (21.6-31.8) mmol/L BUN 59.3 H (9.0-27.0) mg/dL Creatinine 4.8 H (0.6-1.5) mg/dL Est GFR (CKD-EPI) 13 L (>=60) Glucose 134 H (70-110) mg/dL POC Glucose (mg/dL) 146 H (70-110) mg/dL Calcium (8.7-10.3) mg/dL Phosphorus 5.5 H (2.4-5.1) mg/dL AST 10 L (14-35) U/L Total Protein 5.8 L (6.2-8.2) g/dL Albumin 3.6 L (3.8-4.9) g/dL Urine Protein (Negative) Urine Glucose (UA) (Negative) Urine Blood (Negative) Urine Mucus (None) /hpf 12/17/23 12/17/23 12/17/23 Range/Units 17:14 17:49 19:37 Hgb (13.0-17.0) g/dL Hct (39.6-50.0) % MCH (27.0-32.0) pg MCHC (32.0-37.0) g/dL Plt Count (140-440) X 10*3/uL Carbon Dioxide (21.6-31.8) mmol/L BUN (9.0-27.0) mg/dL Creatinine (0.6-1.5) mg/dL Est GFR (CKD-EPI) (>=60) Glucose (70-110) mg/dL POC Glucose (mg/dL) 171 H 166 H (70-110) mg/dL Calcium (8.7-10.3) mg/dL Phosphorus (2.4-5.1) mg/dL AST (14-35) U/L Total Protein (6.2-8.2) g/dL Albumin (3.8-4.9) g/dL Urine Protein 1+ H (Negative) Urine Glucose (UA) 1+ H (Negative) Urine Blood Trace H (Negative) Urine Mucus Rare H (None) /hpf 12/18/23 12/18/23 Range/Units 06:18 07:46 Hgb (13.0-17.0) g/dL Hct (39.6-50.0) % MCH (27.0-32.0) pg MCHC (32.0-37.0) g/dL Plt Count (140-440) X 10*3/uL Carbon Dioxide 19.6 L (21.6-31.8) mmol/L BUN 65.7 H (9.0-27.0) mg/dL Creatinine 4.8 H (0.6-1.5) mg/dL Est GFR (CKD-EPI) 13 L (>=60) Glucose 117 H (70-110) mg/dL POC Glucose (mg/dL) 118 H (70-110) mg/dL Calcium 8.0 L (8.7-10.3) mg/dL Phosphorus (2.4-5.1) mg/dL AST (14-35) U/L Total Protein (6.2-8.2) g/dL Albumin (3.8-4.9) g/dL Urine Protein (Negative) Urine Glucose (UA) (Negative) Urine Blood (Negative) Urine Mucus (None) /hpf Assessment and Plan Plan: Assessment: 1. Acute kidney injury secondary to ATN secondary to cardiorenal syndrome versus underlying chronic kidney disease due to diabetic kidney disease. Unknown baseline renal function. Creatinine stable at 4.8 this admission. Patient did not see a physician for several years. No hydronephrosis noted on kidney ultrasound. UA with 1+ protein. No blood. 2. Acute on chronic systolic CHF with ejection fraction of 25-30%. 3. Volume overload. 4. Diabetes mellitus. 5. Metabolic acidosis secondary to acute kidney injury. On oral bicarb. 6. Benign hypertension. 7. Hyperphosphatemia secondary to acute kidney injury maintained on PhosLo. Plan: Maintain IV Lasix. Increase dose of hydralazine to 50 mg 3 times daily. Hold for systolic blood p ressure less than 120. Quantify proteinuria. Continue to monitor renal function and urine output. Discussed with patient the potential need for renal replacement therapy due to severely depressed GFR and volume overload. Continue to assess on daily basis. May need to start dialysis this admission if no improvement in volume status/renal function.
[2023-12-18 12:36] LABS: Glucose,Whole Blood 157 mg/dL (70-110)
[2023-12-18] MEDS ORDERED: ISOSORBIDE MONONITRATE ER 15 MG TAB PO STA (13:39)
--- NOTE | 2023-12-18 13:40 | P.PN ---
Subjective Progress Note Date: 12/18/23 Progress note Patient creatinine is stable at 4.8. Patient is making urine he made around 1.2 L of urine. No new chest pain shortness of breath lightheadedness or dizziness. Hemodynamic stable HISTORY OF PRESENTING ILLNESS 58 year old past medical history of hypertension, type 2 diabetes who saw me in clinic in August with worsening fatigue and shortness of breath. His echo cardiogram at that time showed an EF of 40%. I started him on losartan 25 mg and Lasix 40 mg which helped patient's clinical symptoms. On the follow-up appointment in late October we decided on proceeding with a heart catheterization procedure because of abnormally low EF. At the time of prescri luc him losartan and Lasix as recommended to obtain his BNP levels which patient never performed. On his follow-up appointment I gave him another prescription. His BMP levels checked. This was done on 12/01/2023. Labs at that time showed severely reduced GFR with creatinine of 4. These results were never indicated to me. On his day of heart catheterization on 12/16/2023 I reviewed the patient's labs with a creatinine of 4. Repeat creatinine was at 4. Due to this I recommended patient go to the ER and get admitted. Patient reports that he still making urine. He denies having any active chest pain chest pressure or increased worsening shortness of breath than before. An echocardiogram performed on this admission shows an EF of 20-25%, with evidence of increased LA pressures Creatinine 4.8, BUN 59, phosphorous 5.5, hemoglobin 11.9, REVIEW OF SYSTEMS 14 point review of system is negative except what is mentioned above in HPI. PHYSICAL EXAMINATION Vital signs reviewed. Head: Normocephalic. Eyes: Sclerae nonicteric. Neck: Brisk carotid upstroke, mildly elevated. Lungs: Mild crackles in bilateral bases Heart: Regular rate and rhythm, S1-S2, no S3, no murmur or rub. Abdomen: Soft nontender, distended abdomen. Extremities: No edema, intact distal pulses. Neuro: Alert, oritented, no focal deficits ASSESSMENT MAT with ATN, nonoliguric Suspect some competent CKD from long-standing diabetes and hypertension Acute on chronic HFrEF, EF 25%, mild to moderate volume overloaded, and NYHA class III Small pericardial effusion Essential hypertension Type II Diabetes Dyslipidemia Suspected CAD, as the etiology of cardiac myopathy due to patient's risk factors PLAN Continue aspirin 81 mg, atorvastatin 40 mg Continue metoprolol 25 mg daily Blood pressure is high. Increase Imdur to 30 minutes, hydralazine 50 minutes 3 times a day Consult nephrology. Evaluate for hemodialysis No signs of urinary retention and bladder scan. Continue to monitor renal function. Appreciate nephrology recommendations. Objective - Vital Signs Vital signs: Vital Signs Temp 98.7 F 12/18/23 07:44 Pulse 78 12/18/23 08:00 Resp 16 12/18/23 08:00 BP 161/92 12/18/23 07:44 Pulse Ox 96 12/18/23 07:44 FiO2 Intake & Output 12/17/23 12/18/23 12/18/23 18:59 06:59 18:59 Intake Total 240 1000 Output Total 800 1100 Balance -560 1000 -1100 Intake: Oral 240 1000 Output: Urine 800 1100 Other: # Voids 1 4 - Labs CBC & Chem 7: 12/17/23 06:58 12/18/23 06:18 Labs: Abnormal Lab Results - Last 24 Hours (Table) 12/17/23 12/17/23 12/17/23 Range/Units 17:14 17:49 19:37 Carbon Dioxide (21.6-31.8) mmol/L BUN (9.0-27.0) mg/dL Creatinine (0.6-1.5) mg/dL Est GFR (CKD-EPI) (>=60) Glucose (70-110) mg/dL POC Glucose (mg/dL) 171 H 166 H (70-110) mg/dL Calcium (8.7-10.3) mg/dL Urine Protein 1+ H (Negative) Urine Glucose (UA) 1+ H (Negative) Urine Blood Trace H (Negative) Urine Mucus Rare H (None) /hpf 12/18/23 12/18/23 12/18/23 Range/Units 06:18 07:46 12:35 Carbon Dioxide 19.6 L (21.6-31.8) mmol/L BUN 65.7 H (9.0-27.0) mg/dL Creatinine 4.8 H (0.6-1.5) mg/dL Est GFR (CKD-EPI) 13 L (>=60) Glucose 117 H (70-110) mg/dL POC Glucose (mg/dL) 118 H 157 H (70-110) mg/dL Calcium 8.0 L (8.7-10.3) mg/dL Urine Protein (Negative) Urine Glucose (UA) (Negative) Urine Blood (Negative) Urine Mucus (None) /hpf
[2023-12-18] MEDS: hydrALAZINE HCL 50 MG TAB PO SCH ×2 (16:17→20:59)
[2023-12-18 17:27] LABS: Glucose,Whole Blood 144 mg/dL (70-110)
[2023-12-18 20:24] LABS: Glucose,Whole Blood 186 mg/dL (70-110)
[2023-12-18] MEDS: INSULIN DETEMIR (LEVEMIR) 100 UNIT/ML SYR SQ SCH (20:59)
[2023-12-18 22:13] LABS: Creatinine,Urine Random 5.3 mg/dL; Protein/Creatinine Ratio,Urine 15.094
--- NOTE | 2023-12-19 00:03 | P.PN ---
Progress Note - Text Progress Note Date: 12/18/23 Hospital course: I'm rounding for Dr. Cecil Pfeiffer. 12/17/2023: Admitted with acute kidney injury. Being followed by nephrology. Denies any pain. Eating well. On IV Lasix. 12/18/2023: Breathing stable. Eating well. Decreased edema. Jg wrap's. Active Medications Atorvastatin Calcium (Atorvastatin 40 Mg Tab) 40 mg PO DAILY [facility] Last Admin: 12/18/23 09:31 Dose: 40 mg Calcium Acetate (Calcium Acetate 667 Mg Tab) 667 mg PO TID-W/MEALS [facility] Last Admin: 12/18/23 16:17 Dose: 667 mg Dextrose/Water (Dextrose 50% Syringe 50 Ml) 25 ml IVP PER PROTOCOL PRN; Protocol PRN Reason: Hypoglycemia Dextrose/Water (Dextrose 50% Syringe 50 Ml) 50 ml IVP PER PROTOCOL PRN; Protocol PRN Reason: Hypoglycemia Dextrose/Water (Dextrose 50% Syringe 50 Ml) 25 ml IVP PER PROTOCOL PRN; Protocol PRN Reason: Hypoglycemia Dextrose/Water (Dextrose 50% Syringe 50 Ml) 50 ml IVP PER PROTOCOL PRN; Protocol PRN Reason: Hypoglycemia Furosemide (Furosemide 10 Mg/Ml 10 Ml Vial) 60 mg IV Q12HR [facility] Last Admin: 12/18/23 20:59 Dose: 60 mg Hydralazine HCl (Hydralazine Hcl 50 Mg Tab) 50 mg PO TID [facility] Last Admin: 12/18/23 20:59 Dose: 50 mg Insulin Aspart (Insulin Aspart (Novolog) 100 Unit/Ml Vial) 0 unit SQ ACHS [facility]; Protocol Last Admin: 12/18/23 20:59 Dose: 2 unit Insulin Detemir (Insulin Detemir (Levemir) 100 Unit/Ml Syr) 10 unit SQ HS [facility] Last Admin: 12/18/23 20:59 Dose: 10 unit Isosorbide Mononitrate (Isosorbide Mononitrate Er 30 Mg Tab.Er.24h) 30 mg PO DAILY [facility] Metoprolol Succinate (Metoprolol Succinate (Er) 25 Mg Tab.Er.24h) 25 mg PO DAILY [facility] Last Admin: 12/18/23 09:32 Dose: 25 mg Naloxone HCl (Naloxone 0.4 Mg/Ml 1 Ml Vial) 0.2 mg IV Q2M PRN PRN Reason: Opioid Reversal Sodium Bicarbonate (Sodium Bicarbonate Tab 650 Mg Tab) 650 mg PO BID [facility] Last Admin: 12/18/23 20:59 Dose: 650 mg On examination: VITAL SIGNS: 98.1, 75, 16, 168.89, 97% room air GENERAL APPEARANCE: Resting HEENT: Normal external appearance of nose and ear. Oral cavity normal EYES: Pupils equal. Conjunctiva normal. NECK: JVD not raised. Mass not palpable. RESPIRATORY: Respiratory effort normal. Lungs clear to auscultation. CARDIOVASCULAR: First and second sounds normal. No edema. ABDOMEN: Soft. Liver and spleen not palpable. No tenderness. No mass palpable. PSYCHIATRY: Alert and oriented x3. Mood and affect normal. INVESTIGATIONS, reviewed in the clinical context: 12/18/2023: Potassium 4.2 creatinine is 4.8 Renal ultrasound: Small cyst of the left kidney. Bilateral ureteral jets are seen. 12/17/2023: White count 7.7 hemoglobin 11.9 platelets 128 potassium 4.7 BUN 59.3 creatinine 4.8 phosphorus 5.5 2-D echocardiogram: EF 20-25%. Severe global LV dysfunction. Moderate MR. Assessment and plan: Acute kidney injury secondary to ATN secondary to cardiorenal syndrome versus underlying chronic kidney disease. Unknown baseline renal function. Creatinine this admission 4.8. Patient did not see a physician for several years.: Not improving Being followed by nephrology. Renal ultrasound unremarkable. Considering replacement therapy - Acute on chronic systolic CHF with ejection fraction of anti-25 %.: Uncontrolled IV Lasix 60 mg every 12 -Moderate mitral regurgitation - Diabetes mellitus. Type II on oral hypoglycemic Metformin discontinued. Accu-Cheks and sliding-scale insulin. - Metabolic acidosis secondary to acute kidney injury. Sodium bicarbonate - Essential hypertension. With CK D Hydralazine. Toprol-XL -Obesity BMI 32.2 Weight loss measures. -Secondary hyperparathyroidism secondary to CK D PhosLo 1 tablet 3 times a day -Full code
[2023-12-19 07:01] LABS: Glucose,Whole Blood 126 mg/dL (70-110)
[2023-12-19] MEDS: INSULIN ASPART (NovoLOG) 100 UNIT/ML VIAL SQ SCH ×4 (07:51→20:57)
[2023-12-19 09:12] LABS: Blood Urea Nitrogen 69.1 mg/dL (9.0-27.0); Calcium 8.5 mg/dL (8.7-10.3); Carbon Dioxide 21.9 mmol/L (21.6-31.8); Chloride 104 mmol/L (96-109); Glucose 120 mg/dL (70-110); Magnesium 2.1 mg/dL (1.5-2.4); Potassium 4.3 mmol/L (3.5-5.5); Sodium 139 mmol/L (135-145)
[2023-12-19] MEDS: FUROSEMIDE 10 MG/ML 10 ML VIAL IV SCH ×2 (09:30→20:57)
[2023-12-19] MEDS: hydrALAZINE HCL 50 MG TAB PO SCH ×3 (09:50→20:58)
[2023-12-19] MEDS: METOPROLOL SUCCINATE (ER) 25 MG TAB.ER.24H PO SCH (09:50)
[2023-12-19] MEDS: ATORVASTATIN 40 MG TAB PO SCH (09:50)
[2023-12-19] MEDS: CALCIUM ACETATE 667 MG TAB PO SCH ×3 (09:50→16:15)
[2023-12-19] MEDS: ISOSORBIDE MONONITRATE ER 30 MG TAB.ER.24H PO SCH (09:50)
[2023-12-19] MEDS: SODIUM BICARBONATE TAB 650 MG TAB PO SCH ×2 (09:56→20:58)
--- NOTE | 2023-12-19 10:35 | P.PN ---
Subjective Progress Note Date: 12/19/23 HISTORY OF PRESENTING ILLNESS 58 year old past medical history of hypertension, type 2 diabetes who saw me in clinic in August with worsening fatigue and shortness of breath. His echocardiogram at that time showed an EF of 40%. I started him on losartan 25 mg and Lasix 40 mg which helped patient's clinical symptoms. On the follow-up appointment in late October we decided on proceeding with a heart catheterization procedure because of abnormally low EF. At the time of pre scribing him losartan and Lasix as recommended to obtain his BNP levels which patient never performed. On his follow-up appointment I gave him another prescription. His BMP levels checked. This was done on 12/01/2023. Labs at that time showed severely reduced GFR with creatinine of 4. These results were never indicated to me. On his day of heart catheterization on 12/16/2023 I reviewed the patient's labs with a creatinine of 4. Repeat creatinine was at 4. Due to this I recommended patient go to the ER and get admitted. Patient reports that he still making urine. He denies having any active chest pain chest pressure or increased worsening shortness of breath than before. An echocardiogram performed on this admission shows an EF of 20-25%, with evidence of increased LA pressures Creatinine 4.8, BUN 59, phosphorous 5.5, hemoglobin 11.9, Progress note Patient creatinine is stable at 4.8. Patient is making urine he made around 1.2 L of urine. No new chest pain shortness of breath lightheadedness or dizziness. Hemodynamic stable 12/19 Patient is seen today in follow-up. Patient is ambulating up and down the hallway. He has had Jg wrap applied with improvement of lower extremity edema. He has been maintained on IV Lasix 60 mg every 12 hours per nephrology. Repeat blood work reveals sodium 139, potassium 4.3, chloride 104, CO2 21. BUN is 69 creatinine 4.8. Heart rate is in the 70s and 80s. Blood pressure 152/87, pulse ox 94% on room air. PHYSICAL EXAMINATION Vital signs reviewed. Head: Normocephalic. Eyes: Sclerae nonicteric. Neck: Brisk carotid upstroke, mildly elevated. Lungs: Mild crackles in bilateral bases Heart: Regular rate and rhythm, S1-S2, no S3, no murmur or rub. Abdomen: Soft nontender, distended abdomen. Extremities: Minimal edema, intact distal pulses. Neuro: Alert, oritented, no focal deficits ASSESSMENT MAT with ATN, nonoliguric Suspect some competent CKD from long-standing diabetes and hypertension Acute on chronic HFrEF, EF 25%, mild to moderate volume overloaded, and NYHA class III Small pericardial effusion Essential hypertension Type II Diabetes Dyslipidemia Suspected CAD, as the etiology of cardiac myopathy due to patient's risk factors PLAN Continue aspirin 81 mg, atorvastatin 40 mg, metoprolol 25 mg daily Continue increased dose of Imdur 30 minutes, hydralazine 50 milligrams 3 times a day Nephrology dosing Lasix currently at 60 mg every 12 hours No signs of urinary retention and bladder scan. Continue to monitor renal function. Appreciate nephrology recommendations. Nurse practitioner note has been reviewed, I agree with documented findings and plan of care. Patient was seen and examined. Objective - Vital Signs Vital signs: Vital Signs Temp 97.6 F 12/19/23 06:59 Pulse 70 12/19/23 06:59 Resp 18 12/19/23 08:20 BP 152/87 12/19/23 06:59 Pulse Ox 94 L 12/19/23 06:59 FiO2 Intake & Output 12/18/23 12/19/23 12/19/23 18:59 06:59 18:59 Intake Total 760 540 Output Total 1100 Balance -340 540 Intake: Oral 160 540 Tube Feeding 600 Output: Urine 1100 Other: Voiding Method Toilet # Voids 2 - Labs CBC & Chem 7: 12/17/23 06:58 12/19/23 06:03 Labs: Abnormal Lab Results - Last 24 Hours (Table) 12/18/23 12/18/23 12/18/23 Range/Units 06:18 12:35 17:26 Carbon Dioxide 19.6 L (21.6-31.8) mmol/L BUN 65.7 H (9.0-27.0) mg/dL Creatinine 4.8 H (0.6-1.5) mg/dL Est GFR (CKD-EPI) 13 L (>=60) Glucose 117 H (70-110) mg/dL POC Glucose (mg/dL) 157 H 144 H (70-110) mg/dL Calcium 8.0 L (8.7-10.3) mg/dL 12/18/23 12/19/23 Range/Units 20:21 07:00 Carbon Dioxide (21.6-31.8) mmol/L BUN (9.0-27.0) mg/dL Creatinine (0.6-1.5) mg/dL Est GFR (CKD-EPI) (>=60) Glucose (70-110) mg/dL POC Glucose (mg/dL) 186 H 126 H (70-110) mg/dL Calcium (8.7-10.3) mg/dL
[2023-12-19 11:47] LABS: Glucose,Whole Blood 169 mg/dL (70-110)
--- NOTE | 2023-12-19 16:25 | P.PN ---
Subjective Patient is seen for f/u for CKD and MAT. Renal function is fairly stable. Currently maintained on diuretics and volume status has improved. Creatinine stable at 4.8 mg/dL. 24 hr. UOP 1100cc. Objective - Vital Signs Vital signs: Vital Signs Temp 98.2 F 12/19/23 12:27 Pulse 79 12/19/23 16:13 Resp 16 12/19/23 12:27 BP 129/68 12/19/23 16:13 Pulse Ox 96 12/19/23 12:27 FiO2 Intake & Output 12/18/23 12/19/23 12/19/23 18:59 06:59 18:59 Intake Total 760 540 Output Total 1100 Balance -340 540 Intake: Oral 160 540 Tube Feeding 600 Output: Urine 1100 Other: Voiding Method Toilet # Voids 2 - Exam Awake, comfortable, alert and oriented x3 No asterixis Lungs are clear CVS S1 and S2 Abdomen is soft, obese. Extremities show 1+ edema, decreasing. CARTON INSPECTOR exam is grossly intact. - Labs CBC & Chem 7: 12/17/23 06:58 12/19/23 06:03 Labs: Abnormal Lab Results - Last 24 Hours (Table) 12/18/23 12/18/23 12/19/23 Range/Units 17:26 20:21 06:03 Anion Gap 13.10 H (4.00-12.00) mmol/L BUN 69.1 H (9.0-27.0) mg/dL Creatinine 4.8 H (0.6-1.5) mg/dL Est GFR (CKD-EPI) 13 L (>=60) Glucose 120 H (70-110) mg/dL POC Glucose (mg/dL) 144 H 186 H (70-110) mg/dL Calcium 8.5 L (8.7-10.3) mg/dL 12/19/23 12/19/23 Range/Units 07:00 11:46 Anion Gap (4.00-12.00) mmol/L BUN (9.0-27.0) mg/dL Creatinine (0.6-1.5) mg/dL Est GFR (CKD-EPI) (>=60) Glucose (70-110) mg/dL POC Glucose (mg/dL) 126 H 169 H (70-110) mg/dL Calcium (8.7-10.3) mg/dL Assessment and Plan Assessment: 1. Acute kidney injury secondary to ATN secondary to cardiorenal syndrome versus underlying chronic kidney disease due to diabetic kidney disease. Unknown baseline renal function. Creatinine stable at 4.8 this admission. Patient did not see a physician for several years. No hydronephrosis noted on kidney ultrasound. UA with 1+ protein. No blood. 2. Acute on chronic systolic CHF with ejection fraction of 25-30%. 3. Volume overload. 4. Diabetes mellitus. 5. Metabolic acidosis secondary to acute kidney injury. On oral bicarb. 6. Benign hypertension. 7. Hyperphosphatemia secondary to acute kidney injury maintained on PhosLo. Plan: Conitnue with current dose of diuretics. No indication for HEAT TREATER HELPER today. Volume status has improved and renal function is stable.
[2023-12-19 16:46] LABS: Glucose,Whole Blood 157 mg/dL (70-110)
[2023-12-19 20:10] LABS: Glucose,Whole Blood 208 mg/dL (70-110)
[2023-12-19] MEDS: IPRATROPIUM-ALBUTEROL 3 ML NEB INHALATION SCH (20:35)
[2023-12-19] MEDS: INSULIN DETEMIR (LEVEMIR) 100 UNIT/ML SYR SQ SCH (20:57)
--- NOTE | 2023-12-20 04:00 | PN ---
PROGRESS NOTE Remains on Levemir for diabetes, Lipitor for cholesterol, prazosin for hypertension, Imdur for hypertension, Toprol-XL for hypertension. Had cardiology, nephrology consult. Small cyst in left kidney versus renal calculus on the ultrasound. Chest CT shows bilateral small pleural effusions echocardiogram was reviewed and showed severe LV systolic dysfunction, 20-25% ejection fraction, moderate RV dilation, RSVP 34. Nephrology saw IV Lasix, decreased edema, Jg wraps to his legs. OBJECTIVE: VITAL SIGNS: Temp 98.1, pulse 75, respiratory rate 16-18, O2 sat 99% on room air. HEENT: Pupils equal, round, reactive. LUNGS: Show clear decreased breath sounds. HEART: S1, S2. ABDOMEN: Soft, nontender. PSYCH: Fair mood and affect. LABORATORY DATA: Potassium is 4.2, creatinine is 4.8. Renal ultrasound, cyst on the left kidney. White cell count 7.7, platelets 128, potassium 4.7, BUN is 59, creatinine is 4.8. Ejection fraction 20-25%. Global LV dysfunction. Moderate MR. IMPRESSION: 1. ATN, cardiorenal syndrome. 2. Chronic kidney disease. 3. Acute on chronic systolic CHF, 25% ejection fraction. 4. Moderate mitral regurg. 5. Hypertension. 6. Obesity. 7. Secondary hyperparathyroidism. 8. Diabetes mellitus. PLAN: Cancel his metformin due to renal dysfunction. It still remain high with BUN of 69, creatinine 4.8. Prognosis extremely guarded. Continue current treatments. MMODL / IJN: [id number] /
[2023-12-20 07:24] LABS: Glucose,Whole Blood 128 mg/dL (70-110)
[2023-12-20] MEDS: IPRATROPIUM-ALBUTEROL 3 ML NEB INHALATION SCH ×4 (07:52→18:47)
[2023-12-20] MEDS: SODIUM BICARBONATE TAB 650 MG TAB PO SCH ×2 (09:10→21:16)
[2023-12-20] MEDS: ISOSORBIDE MONONITRATE ER 30 MG TAB.ER.24H PO SCH (09:10)
[2023-12-20] MEDS: INSULIN ASPART (NovoLOG) 100 UNIT/ML VIAL SQ SCH ×4 (09:11→21:16)
[2023-12-20] MEDS: ATORVASTATIN 40 MG TAB PO SCH (09:11)
[2023-12-20] MEDS: FUROSEMIDE 10 MG/ML 10 ML VIAL IV SCH (09:11)
[2023-12-20] MEDS: METOPROLOL SUCCINATE (ER) 25 MG TAB.ER.24H PO SCH (09:11)
[2023-12-20] MEDS: hydrALAZINE HCL 50 MG TAB PO SCH ×3 (09:11→21:16)
[2023-12-20] MEDS: CALCIUM ACETATE 667 MG TAB PO SCH ×3 (09:11→17:58)
[2023-12-20 10:17] LABS: Basophils # (A) 0.06 X 10*3/uL (0.00-0.10); Basophils % (A) 0.7 %; Eosinophils # (A) 0.15 X 10*3/uL (0.04-0.35); Eosinophils % (A) 1.7 %; HCT 37.2 % (39.6-50.0); HGB 11.6 g/dL (13.0-17.0); Lymphocytes # (A) 1.58 X 10*3/uL (0.90-5.00); Lymphocytes % (A) 18.1 %; MCH 25.9 pg (27.0-32.0); MCHC 31.2 g/dL (32.0-37.0); Mean Platelet Volume 11.3 FL (9.5-12.2); Monocytes # (A) 0.72 X 10*3/uL (0.20-1.00); Monocytes % (A) 8.2 %; NRBC Per 100 WBC 0 X 10*3/uL (0.00-0.01); Neutrophils # (A) 6.22 X 10*3/uL (1.80-7.70); Neutrophils % (A) 71.1 %; Platelet Count 129 X 10*3/uL (140-440); RBC 4.48 X 10*6/uL (4.40-5.60); RDW 14.2 % (11.5-14.5); WBC 8.75 X 10*3/uL (4.50-10.00)
[2023-12-20 10:55] LABS: ALT 10 U/L (10-49); AST 7 U/L (14-35); Albumin 3.6 g/dL (3.8-4.9); Albumin/Globulin Ratio 1.57 Ratio (1.60-3.17); Alkaline Phosphatase 111 U/L (41-126); BUN/Creat Ratio 13.43 Ratio (12.00-20.00); Blood Urea Nitrogen 71.2 mg/dL (9.0-27.0); Calcium 8.7 mg/dL (8.7-10.3); Carbon Dioxide 21.3 mmol/L (21.6-31.8); Chloride 103 mmol/L (96-109); Globulin 2.3 g/dL (1.6-3.3); Glucose 119 mg/dL (70-110); Sodium 139 mmol/L (135-145); Total Bilirubin 0.6 mg/dL (0.3-1.2); Total Protein 5.9 g/dL (6.2-8.2)
[2023-12-20 12:01] LABS: Glucose,Whole Blood 215 mg/dL (70-110)
--- NOTE | 2023-12-20 14:36 | P.PN ---
Subjective Progress Note Date: 12/20/23 HISTORY OF PRESENTING ILLNESS 58 year old past medical history of hypertension, type 2 diabetes who saw me in clinic in August with worsening fatigue and shortness of breath. His echocardiogram at that time showed an EF of 40%. I started him on losartan 25 mg and Lasix 40 mg which helped patient's clinical symptoms. On the follow-up appointment in late October we decided on proceeding with a heart catheterization procedure because of abnormally low EF. At the time of pre scribing him losartan and Lasix as recommended to obtain his BNP levels which patient never performed. On his follow-up appointment I gave him another prescription. His BMP levels checked. This was done on 12/01/2023. Labs at that time showed severely reduced GFR with creatinine of 4. These results were never indicated to me. On his day of heart catheterization on 12/16/2023 I reviewed the patient's labs with a creatinine of 4. Repeat creatinine was at 4. Due to this I recommended patient go to the ER and get admitted. Patient reports that he still making urine. He denies having any active chest pain chest pressure or increased worsening shortness of breath than before. An echocardiogram performed on this admission shows an EF of 20-25%, with evidence of increased LA pressures Creatinine 4.8, BUN 59, phosphorous 5.5, hemoglobin 11.9, Progress note Patient creatinine is stable at 4.8. Patient is making urine he made around 1.2 L of urine. No new chest pain shortness of breath lightheadedness or dizziness. Hemodynamic stable 12/19 Patient is seen today in follow-up. Patient is ambulating up and down the hallway. He has had Jg wrap applied with improvement of lower extremity edema. He has been maintained on IV Lasix 60 mg every 12 hours per nephrology. Repeat blood work reveals sodium 139, potassium 4.3, chloride 104, CO2 21. BUN is 69 creatinine 4.8. Heart rate is in the 70s and 80s. Blood pressure 152/87, pulse ox 94% on room air. 12/20 Heart rate is in the 70s and 80s, blood pressure 138/70, pulse ox 96% on room air, afebrile. Repeat blood work reveals WBC 8.7, hemoglobin 1.6, BUN 71 creatinine 5.3. Patient continues to have lower extremity edema. Nephrology is not pursuing dialysis at this time. Patient states in general that he feels quite well. Lower extremity edema is improved. PHYSICAL EXAMINATION Vital signs reviewed. Head: Normocephalic. Eyes: Sclerae nonicteric. Neck: Brisk carotid upstroke, mildly elevated. Lungs: Mild crackles in bilateral bases Heart: Regular rate and rhythm, S1-S2, no S3, no murmur or rub. Abdomen: Soft nontender, distended abdomen. Extremities: Minimal edema, intact distal pulses. Neuro: Alert, oritented, no focal deficits ASSESSMENT MAT with ATN, nonoliguric Suspect some competent CKD from long-standing diabetes and hypertension Acute on chronic HFrEF, EF 25%, mild to moderate volume overloaded, and NYHA class III Small pericardial effusion Essential hypertension Type II Diabetes Dyslipidemia Suspected CAD, as the etiology of cardiac myopathy due to patient's risk factors PLAN Continue aspirin 81 mg, atorvastatin 40 mg, metoprolol 25 mg daily Continue increased dose of Imdur 30 milligrams, hydralazine 50 milligrams 3 times a day Nephrology dosing Lasix currently at 60 mg every 12 hours No signs of urinary retention and bladder scan. Continue to monitor renal function. Appreciate nephrology recommendations. Nurse practitioner note has been reviewed, I agree with documented findings and plan of care. Patient was seen and examined. Objective - Vital Signs Vital signs: Vital Signs Temp 98 F 12/20/23 12:54 Pulse 77 12/20/23 12:54 Resp 19 12/20/23 12:54 BP 138/70 12/20/23 12:54 Pulse Ox 96 12/20/23 12:54 FiO2 Intake & Output 12/19/23 12/20/23 12/20/23 18:59 06:59 18:59 Intake Total 420 Balance 420 Intake: Oral 420 Other: Voiding Method Toilet Toilet # Voids 2 - Labs CBC & Chem 7: 12/20/23 06:00 12/20/23 06:00 Labs: Abnormal Lab Results - Last 24 Hours (Table) 12/19/23 12/19/23 12/20/23 Range/Units 16:44 20:08 06:00 Hgb 11.6 L (13.0-17.0) g/dL Hct 37.2 L (39.6-50.0) % MCH 25.9 L (27.0-32.0) pg MCHC 31.2 L (32.0-37.0) g/dL Plt Count 129 L (140-440) X 10*3/uL Carbon Dioxide (21.6-31.8) mmol/L Anion Gap (4.00-12.00) mmol/L BUN (9.0-27.0) mg/dL Creatinine (0.6-1.5) mg/dL Est GFR (CKD-EPI) (>=60) Glucose (70-110) mg/dL POC Glucose (mg/dL) 157 H 208 H (70-110) mg/dL AST (14-35) U/L Total Protein (6.2-8.2) g/dL Albumin (3.8-4.9) g/dL Albumin/Globulin Ratio (1.60-3.17) Ratio 12/20/23 12/20/23 12/20/23 Range/Units 06:00 07:21 11:58 Hgb (13.0-17.0) g/dL Hct (39.6-50.0) % MCH (27.0-32.0) pg MCHC (32.0-37.0) g/dL Plt Count (140-440) X 10*3/uL Carbon Dioxide 21.3 L (21.6-31.8) mmol/L Anion Gap 14.70 H (4.00-12.00) mmol/L BUN 71.2 H (9.0-27.0) mg/dL Creatinine 5.3 H (0.6-1.5) mg/dL Est GFR (CKD-EPI) 12 L (>=60) Glucose 119 H (70-110) mg/dL POC Glucose (mg/dL) 128 H 215 H (70-110) mg/dL AST 7 L (14-35) U/L Total Protein 5.9 L (6.2-8.2) g/dL Albumin 3.6 L (3.8-4.9) g/dL Albumin/Globulin Ratio 1.57 L (1.60-3.17) Ratio
--- NOTE | 2023-12-20 17:00 | P.PN ---
Subjective Patient is seen for f/u for CKD and MAT. Renal function is fairly stable. Currently maintained on diuretics and volume status has improved. Creatinine increased to 5.3 today. No significant complaints. Good appetite Objective - Vital Signs Vital signs: Vital Signs Temp 98 F 12/20/23 12:54 Pulse 80 12/20/23 15:49 Resp 19 12/20/23 12:54 BP 138/70 12/20/23 12:54 Pulse Ox 96 12/20/23 12:54 FiO2 Intake & Output 12/19/23 12/20/23 12/20/23 18:59 06:59 18:59 Intake Total 420 Balance 420 Intake: Oral 420 Other: Voiding Method Toilet Toilet # Voids 2 - Exam Awake, comfortable, alert and oriented x3 No asterixis Lungs are clear CVS S1 and S2 Abdomen is soft, obese. Extremities show 1+ edema, decreasing. CONCRETE BOOM OPERATOR exam is grossly intact. - Labs CBC & Chem 7: 12/20/23 06:00 12/20/23 06:00 Labs: Abnormal Lab Results - Last 24 Hours (Table) 12/19/23 12/20/23 12/20/23 Range/Units 20:08 06:00 06:00 Hgb 11.6 L (13.0-17.0) g/dL Hct 37.2 L (39.6-50.0) % MCH 25.9 L (27.0-32.0) pg MCHC 31.2 L (32.0-37.0) g/dL Plt Count 129 L (140-440) X 10*3/uL Carbon Dioxide 21.3 L (21.6-31.8) mmol/L Anion Gap 14.70 H (4.00-12.00) mmol/L BUN 71.2 H (9.0-27.0) mg/dL Creatinine 5.3 H (0.6-1.5) mg/dL Est GFR (CKD-EPI) 12 L (>=60) Glucose 119 H (70-110) mg/dL POC Glucose (mg/dL) 208 H (70-110) mg/dL AST 7 L (14-35) U/L Total Protein 5.9 L (6.2-8.2) g/dL Albumin 3.6 L (3.8-4.9) g/dL Albumin/Globulin Ratio 1.57 L (1.60-3.17) Ratio 12/20/23 12/20/23 Range/Units 07:21 11:58 Hgb (13.0-17.0) g/dL Hct (39.6-50.0) % MCH (27.0-32.0) pg MCHC (32.0-37.0) g/dL Plt Count (140-440) X 10*3/uL Carbon Dioxide (21.6-31.8) mmol/L Anion Gap (4.00-12.00) mmol/L BUN (9.0-27.0) mg/dL Creatinine (0.6-1.5) mg/dL Est GFR (CKD-EPI) (>=60) Glucose (70-110) mg/dL POC Glucose (mg/dL) 128 H 215 H (70-110) mg/dL AST (14-35) U/L Total Protein (6.2-8.2) g/dL Albumin (3.8-4.9) g/dL Albumin/Globulin Ratio (1.60-3.17) Ratio Assessment and Plan Assessment: 1. Acute kidney injury secondary to ATN secondary to cardiorenal syndrome versus underlying chronic kidney disease due to diabetic kidney disease. Unknown baseline renal function. Creatinine stable at 4.8 this admission. Increased to 5.3 today. Patient did not see a physician for several years. No hydronephrosis noted on kidney ultrasound. UA with 1+ protein. No blood. 2. Acute on chronic systolic CHF with ejection fraction of 25-30%. 3. Volume overload. 4. Diabetes mellitus. 5. Metabolic acidosis secondary to acute kidney injury. On oral bicarb. 6. Benign hypertension. 7. Hyperphosphatemia secondary to acute kidney injury maintained on PhosLo. Plan: Decrease Lasix to 40 mg IV daily Repeat labs in a.m. No indication for FILTER PRESS SUPERVISOR today. Patient can likely be discharged tomorrow with follow-up as outpatient in 1 week.
[2023-12-20 17:32] LABS: Glucose,Whole Blood 192 mg/dL (70-110)
[2023-12-20 20:09] LABS: Glucose,Whole Blood 221 mg/dL (70-110)
[2023-12-20] MEDS: INSULIN DETEMIR (LEVEMIR) 100 UNIT/ML SYR SQ SCH (21:16)
[2023-12-20] MEDS: PANTOPRAZOLE 40 MG TABLET PO SCH (21:16)
[2023-12-21 03:07] VITALS: RESP 16
[2023-12-21 07:38] LABS: Glucose,Whole Blood 155 mg/dL (70-110)
[2023-12-21] MEDS: IPRATROPIUM-ALBUTEROL 3 ML NEB INHALATION SCH ×4 (08:07→19:54)
[2023-12-21] MEDS ORDERED: FUROSEMIDE 10 MG/ML 4 ML VIAL IV SCH (09:00)
[2023-12-21] MEDS ORDERED: FUROSEMIDE 20 MG TAB PO SCH (09:00)
[2023-12-21] MEDS: INSULIN ASPART (NovoLOG) 100 UNIT/ML VIAL SQ SCH ×4 (09:23→21:05)
[2023-12-21] MEDS: SODIUM BICARBONATE TAB 650 MG TAB PO SCH ×2 (09:23→21:05)
[2023-12-21] MEDS: ISOSORBIDE MONONITRATE ER 30 MG TAB.ER.24H PO SCH (09:23)
[2023-12-21] MEDS: CALCIUM ACETATE 667 MG TAB PO SCH ×3 (09:23→17:54)
[2023-12-21] MEDS: PANTOPRAZOLE 40 MG TABLET PO SCH ×2 (09:23→17:54)
[2023-12-21] MEDS: hydrALAZINE HCL 50 MG TAB PO SCH ×3 (09:23→21:05)
[2023-12-21] MEDS: ATORVASTATIN 40 MG TAB PO SCH (09:23)
[2023-12-21] MEDS: METOPROLOL SUCCINATE (ER) 25 MG TAB.ER.24H PO SCH (09:23)
[2023-12-21 11:05] LABS: Basophils # (A) 0.07 X 10*3/uL (0.00-0.10); Basophils % (A) 0.8 %; Eosinophils # (A) 0.15 X 10*3/uL (0.04-0.35); Eosinophils % (A) 1.7 %; HCT 33.7 % (39.6-50.0); HGB 10.5 g/dL (13.0-17.0); Lymphocytes # (A) 1.68 X 10*3/uL (0.90-5.00); Lymphocytes % (A) 18.8 %; MCH 26.2 pg (27.0-32.0); MCHC 31.2 g/dL (32.0-37.0); Mean Platelet Volume 11.6 FL (9.5-12.2); Monocytes # (A) 0.98 X 10*3/uL (0.20-1.00); NRBC Per 100 WBC 0 X 10*3/uL (0.00-0.01); Neutrophils # (A) 6.04 X 10*3/uL (1.80-7.70); Neutrophils % (A) 67.5 %; Platelet Count 144 X 10*3/uL (140-440); RBC 4.01 X 10*6/uL (4.40-5.60); RDW 14.4 % (11.5-14.5); WBC 8.94 X 10*3/uL (4.50-10.00)
[2023-12-21 11:22] LABS: ALT 9 U/L (10-49); AST 7 U/L (14-35); Albumin 3.3 g/dL (3.8-4.9); Alkaline Phosphatase 106 U/L (41-126); Calcium 8.6 mg/dL (8.7-10.3); Carbon Dioxide 20.6 mmol/L (21.6-31.8); Chloride 102 mmol/L (96-109); Globulin 2.2 g/dL (1.6-3.3); Glucose 161 mg/dL (70-110); Potassium 3.7 mmol/L (3.5-5.5); Sodium 138 mmol/L (135-145); Total Bilirubin 0.6 mg/dL (0.3-1.2); Total Protein 5.5 g/dL (6.2-8.2)
[2023-12-21 11:55] LABS: Glucose,Whole Blood 179 mg/dL (70-110)
[2023-12-21 12:02] VITALS: BMI 32.1
--- NOTE | 2023-12-21 12:43 | P.PN ---
Subjective Progress Note Date: 12/21/23 HISTORY OF PRESENTING ILLNESS 58 year old past medical history of hypertension, type 2 diabetes who saw me in clinic in August with worsening fatigue and shortness of breath. His echocardiogram at that time showed an EF of 40%. I started him on losartan 25 mg and Lasix 40 mg which helped patient's clinical symptoms. On the follow-up appointment in late October we decided on proceeding with a heart catheterization procedure because of abnormally low EF. At the time of pre scribing him losartan and Lasix as recommended to obtain his BNP levels which patient never performed. On his follow-up appointment I gave him another prescription. His BMP levels checked. This was done on 12/01/2023. Labs at that time showed severely reduced GFR with creatinine of 4. These results were never indicated to me. On his day of heart catheterization on 12/16/2023 I reviewed the patient's labs with a creatinine of 4. Repeat creatinine was at 4. Due to this I recommended patient go to the ER and get admitted. Patient reports that he still making urine. He denies having any active chest pain chest pressure or increased worsening shortness of breath than before. An echocardiogram performed on this admission shows an EF of 20-25%, with evidence of increased LA pressures Creatinine 4.8, BUN 59, phosphorous 5.5, hemoglobin 11.9, Progress note Patient creatinine is stable at 4.8. Patient is making urine he made around 1.2 L of urine. No new chest pain shortness of breath lightheadedness or dizziness. Hemodynamic stable 12/19 Patient is seen today in follow-up. Patient is ambulating up and down the hallway. He has had Jg wrap applied with improvement of lower extremity edema. He has been maintained on IV Lasix 60 mg every 12 hours per nephrology. Repeat blood work reveals sodium 139, potassium 4.3, chloride 104, CO2 21. BUN is 69 creatinine 4.8. Heart rate is in the 70s and 80s. Blood pressure 152/87, pulse ox 94% on room air. 12/20 Heart rate is in the 70s and 80s, blood pressure 138/70, pulse ox 96% on room air, afebrile. Repeat blood work reveals WBC 8.7, hemoglobin 1.6, BUN 71 creatinine 5.3. Patient continues to have lower extremity edema. Nephrology is not pursuing dialysis at this time. Patient states in general that he feels quite well. Lower extremity edema is improved. 12/21 Patient denies having any chest pain, lightheadedness or dizziness. Heart rate has been in the 80s, blood pressure 136/80, pulse ox 95% on room air. He states in general he is feeling well today. Repeat blood work reveals hemoglobin of 10.5. BUN 72 and creatinine 6. PHYSICAL EXAMINATION Vital signs reviewed. Head: Normocephalic. Eyes: Sclerae nonicteric. Neck: Brisk carotid upstroke, mildly elevated. Lungs: Mild crackles in bilateral bases Heart: Regular rate and rhythm, S1-S2, no S3, no murmur or rub. Abdomen: Soft nontender, distended abdomen. Extremities: Minimal edema, intact distal pulses. Neuro: Alert, oritented, no focal deficits ASSESSMENT MAT with ATN, nonoliguric Suspect some competent CKD from long-standing diabetes and hypertension Acute on chronic HFrEF, EF 25%, mild to moderate volume overloaded, and NYHA class III Small pericardial effusion Essential hypertension Type II Diabetes Dyslipidemia Suspected CAD, as the etiology of cardiac myopathy due to patient's risk factors PLAN Continue aspirin 81 mg, atorvastatin 40 mg, metoprolol 25 mg daily Continue increased dose of Imdur 30 milligrams, hydralazine 50 milligrams 3 times a day Nephrology dosing Lasix currently at 60 mg every 12 hours Cardiology will sign off this case and follow on an as-needed basis. Please reconsult for any new concerns. Patient may follow-up in the office in one to 2 weeks. Nurse practitioner note has been reviewed, I agree with documented findings and plan of care. Patient was seen and examined. Objective - Vital Signs Vital signs: Vital Signs Temp 97.7 F 12/21/23 07:39 Pulse 84 12/21/23 08:24 Resp 16 12/21/23 07:39 BP 136/80 12/21/23 07:39 Pulse Ox 95 12/21/23 07:39 FiO2 Intake & Output 12/20/23 12/21/23 12/21/23 18:59 06:59 18:59 Intake Total 540 540 Balance 540 540 Intake: Oral 540 540 Other: Voiding Method Toilet # Voids 1 2 - Labs CBC & Chem 7: 12/21/23 06:15 12/21/23 06:15 Labs: Abnormal Lab Results - Last 24 Hours (Table) 12/20/23 12/20/23 12/20/23 Range/Units 06:00 06:00 11:58 Hgb 11.6 L (13.0-17.0) g/dL Hct 37.2 L (39.6-50.0) % MCH 25.9 L (27.0-32.0) pg MCHC 31.2 L (32.0-37.0) g/dL Plt Count 129 L (140-440) X 10*3/uL Carbon Dioxide 21.3 L (21.6-31.8) mmol/L Anion Gap 14.70 H (4.00-12.00) mmol/L BUN 71.2 H (9.0-27.0) mg/dL Creatinine 5.3 H (0.6-1.5) mg/dL Est GFR (CKD-EPI) 12 L (>=60) Glucose 119 H (70-110) mg/dL POC Glucose (mg/dL) 215 H (70-110) mg/dL AST 7 L (14-35) U/L Total Protein 5.9 L (6.2-8.2) g/dL Albumin 3.6 L (3.8-4.9) g/dL Albumin/Globulin Ratio 1.57 L (1.60-3.17) Ratio 12/20/23 12/20/23 12/21/23 Range/Units 17:04 20:08 07:37 Hgb (13.0-17.0) g/dL Hct (39.6-50.0) % MCH (27.0-32.0) pg MCHC (32.0-37.0) g/dL Plt Count (140-440) X 10*3/uL Carbon Dioxide (21.6-31.8) mmol/L Anion Gap (4.00-12.00) mmol/L BUN (9.0-27.0) mg/dL Creatinine (0.6-1.5) mg/dL Est GFR (CKD-EPI) (>=60) Glucose (70-110) mg/dL POC Glucose (mg/dL) 192 H 221 H 155 H (70-110) mg/dL AST (14-35) U/L Total Protein (6.2-8.2) g/dL Albumin (3.8-4.9) g/dL Albumin/Globulin Ratio (1.60-3.17) Ratio
[2023-12-21 17:04] LABS: Glucose,Whole Blood 160 mg/dL (70-110)
--- NOTE | 2023-12-21 20:08 | P.PN ---
Subjective Patient is seen for f/u for CKD and MAT. Renal function has worsened over the last 2 days. Currently maintained on diuretics and volume status has improved. Creatinine increased to 5.3 yesterday . No significant complaints. Good appetite Objective - Vital Signs Vital signs: Vital Signs Temp 98.4 F 12/21/23 13:02 Pulse 84 12/21/23 19:58 Resp 16 12/21/23 13:02 BP 145/74 12/21/23 13:02 Pulse Ox 94 L 12/21/23 13:02 FiO2 Intake & Output 12/21/23 12/21/23 12/22/23 06:59 18:59 06:59 Intake Total 540 300 Balance 540 300 Weight 110.677 kg Intake: Oral 540 300 Other: Voiding Method Toilet # Voids 2 4 - Exam Awake, comfortable, alert and oriented x3 No asterixis Lungs are clear CVS S1 and S2 Abdomen is soft, obese. Extremities show 1+ edema, decreasing. [employer] exam is grossly intact. - Labs CBC & Chem 7: 12/21/23 06:15 12/21/23 06:15 Labs: Abnormal Lab Results - Last 24 Hours (Table) 12/20/23 12/21/23 12/21/23 Range/Units 20:08 06:15 06:15 RBC 4.01 L (4.40-5.60) X 10*6/uL Hgb 10.5 L (13.0-17.0) g/dL Hct 33.7 L (39.6-50.0) % MCH 26.2 L (27.0-32.0) pg MCHC 31.2 L (32.0-37.0) g/dL Carbon Dioxide 20.6 L (21.6-31.8) mmol/L Anion Gap 15.40 H (4.00-12.00) mmol/L BUN 72.0 H (9.0-27.0) mg/dL Creatinine 6.0 H (0.6-1.5) mg/dL Est GFR (CKD-EPI) 10 L (>=60) Glucose 161 H (70-110) mg/dL POC Glucose (mg/dL) 221 H (70-110) mg/dL Calcium 8.6 L (8.7-10.3) mg/dL AST 7 L (14-35) U/L ALT 9 L (10-49) U/L Total Protein 5.5 L (6.2-8.2) g/dL Albumin 3.3 L (3.8-4.9) g/dL Albumin/Globulin Ratio 1.50 L (1.60-3.17) Ratio 12/21/23 12/21/23 12/21/23 Range/Units 07:37 11:55 17:02 RBC (4.40-5.60) X 10*6/uL Hgb (13.0-17.0) g/dL Hct (39.6-50.0) % MCH (27.0-32.0) pg MCHC (32.0-37.0) g/dL Carbon Dioxide (21.6-31.8) mmol/L Anion Gap (4.00-12.00) mmol/L BUN (9.0-27.0) mg/dL Creatinine (0.6-1.5) mg/dL Est GFR (CKD-EPI) (>=60) Glucose (70-110) mg/dL POC Glucose (mg/dL) 155 H 179 H 160 H (70-110) mg/dL Calcium (8.7-10.3) mg/dL AST (14-35) U/L ALT (10-49) U/L Total Protein (6.2-8.2) g/dL Albumin (3.8-4.9) g/dL Albumin/Globulin Ratio (1.60-3.17) Ratio Assessment and Plan Assessment: 1. Acute kidney injury secondary to ATN secondary to cardiorenal syndrome versus underlying chronic kidney disease due to diabetic kidney disease. Unknown baseline renal function. Creatinine stable at 4.8 this admission. Increased to 5.3 yesterday. Patient did not see a physician for several years. No hydronephrosis noted on kidney ultrasound. UA with 1+ protein. No blood. 2. Acute on chronic systolic CHF with ejection fraction of 25-30%. 3. Volume overload. 4. Diabetes mellitus. 5. Metabolic acidosis secondary to acute kidney injury. On oral bicarb. 6. Benign hypertension. 7. Hyperphosphatemia secondary to acute kidney injury maintained on PhosLo. Plan: Follow-up on labs from today. Continue with decreased dose of Lasix. Patient could possibly be discharged with plans to follow-up as outpatient in about 1 week's time. He continues to feel fairly well with no complaints of nausea or vomiting.
[2023-12-21 20:29] LABS: Glucose,Whole Blood 193 mg/dL (70-110)
[2023-12-21 21:02] VITALS: BP 143/75; PULSE 92; TEMP 97.6
[2023-12-21] MEDS: INSULIN DETEMIR (LEVEMIR) 100 UNIT/ML SYR SQ SCH (21:05)
== END 2023-12-21 21:30 | disposition home or self-care (01) | DRG 682 ==
LOC: EC 11:54 → 5NMEDONC 15:36
PROVIDERS: ADMIT Family Medicine; ATTEND Family Medicine
DX: N17.0 Acute kidney failure with tubular necrosis (principal); I50.23 Acute on chronic systolic (congestive) heart failure; I31.39 Other pericardial effusion (noninflammatory); E87.20 Acidosis, unspecified; I13.0 Hypertensive heart and chronic kidney disease with heart failure and stage 1 through stage 4 chronic kidney disease, or unspecified chronic kidney disease; I11.0 Hypertensive heart disease with heart failure; E78.5 Hyperlipidemia, unspecified; E11.649 Type 2 diabetes mellitus with hypoglycemia without coma; E11.29 Type 2 diabetes mellitus with other diabetic kidney complication; Z68.32 Body mass index [BMI] 32.0-32.9, adult; E66.9 Obesity, unspecified; N25.81 Secondary hyperparathyroidism of renal origin; E11.22 Type 2 diabetes mellitus with diabetic chronic kidney disease; E83.39 Other disorders of phosphorus metabolism; I08.1 Rheumatic disorders of both mitral and tricuspid valves; E87.5 Hyperkalemia; F43.10 Post-traumatic stress disorder, unspecified; N18.9 Chronic kidney disease, unspecified; Z79.4 Long term (current) use of insulin; Z79.84 Long term (current) use of oral hypoglycemic drugs; Z79.899 Other long term (current) drug therapy
CPT/HCPCS: 36415; 71046; 71250; 76770; 80048; 80053; 81001; 82570; 83036; 83735; 83880; 84100; 84156; 84484; 85025; 85379; 85610; 85730; 93306; 94640; 96360; 96361; 99285

== ENCOUNTER → 2023-12-16 | Day surgery (SDC) | payer BC ==
[2023-12-14 12:59] VITALS: BMI 31.6
[~2023-12-16] MED LIST: ALPRAZolam 0.25 MG TAB PO PRN; ALPRAZolam 0.5 MG TAB PO PRN; ASPIRIN 325 MG TAB PO STA; HEPARIN SODIUM,PORCINE (1 ML) 2,500 UNIT in SODIUM CHLORIDE 0.9% 250 ML IRRIGATION PRN; HEPARIN SODIUM,PORCINE 10,000 UNIT in SODIUM CHLORIDE 0.9% 1,000 ML IRRIGATION PRN; NITROGLYCERIN SL TABS 0.4 MG TAB SUBLINGUAL PRN
[2023-12-16 10:17] LABS: Basophils # (A) 0.1 k/uL (0-0.2); Basophils % (A) 1 %; Eosinophils # (A) 0.2 k/uL (0-0.7); Eosinophils % (A) 3 %; HCT 37.6 % (39.0-53.0); HGB 11.7 gm/dL (13.0-17.5); Hypochromasia Moderate; Lymphocytes # (A) 1.6 k/uL (1.0-4.8); Lymphocytes % (A) 18 %; MCH 27.3 pg (25.0-35.0); MCHC 31.1 g/dL (31.0-37.0); MCV 87.9 fL (80.0-100.0); Mean Platelet Volume 10.3; Monocytes # (A) 0.5 k/uL (0-1.0); Monocytes % (A) 6 %; Neutrophils # (A) 6.2 k/uL (1.3-7.7); Neutrophils % (A) 71 %; Platelet Count 176 k/uL (150-450); RBC 4.28 m/uL (4.30-5.90); RDW 14.5 % (11.5-15.5); WBC 8.7 k/uL (3.8-10.6)
[2023-12-16 10:36] LABS: African American GFR (CKD) 14 (>60 ml/min/1.73 sqM); Anion Gap 8 mmol/L; Blood Urea Nitrogen 65 mg/dL (9-20); Calcium 8.4 mg/dL (8.4-10.2); Carbon Dioxide 19 mmol/L (22-30); Chloride 109 mmol/L (98-107); Glucose 148 mg/dL (74-99); Non-African American GFR(CKD) 12 (>60 ml/min/1.73 sqM); Potassium 4.6 mmol/L (3.5-5.1); Sodium 136 mmol/L (137-145)
== END ==
LOC: CATHCVL 09:27
PROVIDERS: ATTEND Student in an Organized Health Care Education/Training Program
DX: Z53.8 Procedure and treatment not carried out for other reasons (principal); I11.0 Hypertensive heart disease with heart failure; I50.9 Heart failure, unspecified; E11.9 Type 2 diabetes mellitus without complications; E66.9 Obesity, unspecified; Z79.84 Long term (current) use of oral hypoglycemic drugs; Z79.899 Other long term (current) drug therapy
CPT/HCPCS: 80048; 85025

== ENCOUNTER → 2024-01-16 | Outpatient (CLI) | payer BC ==
[2024-01-16 14:28] LABS: Anti-DNA, DS unit <1.0 IU/mL; DNA Double-Stranded Negative (Negative)
[2024-01-16 14:32] LABS: Free Kappa Lt Chain Qnt, Serum 12.11 mg/dL (0.33-1.94); Free Lambda Lt Chain Qnt, Seru 8.67 mg/dL (0.57-2.63)
[2024-01-16 14:53] LABS: HIV 2 AB Non-Reactive (Non-Reactive); HIV AB P24 Non-Reactive (Non-Reactive); HIV P24 AG Non-Reactive (Non-Reactive)
[2024-01-17 09:24] LABS: Total Volume 24 Hour,Urine 1300 mL
[2024-01-17 14:05] LABS: C-ANCA <1:20 Titer (<1:20)
== END | disposition home or self-care (01) ==
LOC: LABWHC1 07:18
PROVIDERS: ATTEND Nurse Practitioner Family
DX: R80.9 Proteinuria, unspecified (principal)
CPT/HCPCS: 36415; 81050; 83516; 83883; 84156; 86038; 86160; 86162; 86225; 86255; 86332; 87390

== ENCOUNTER 2024-03-21 10:32 | Day surgery (SDC) | payer BC ==
[2024-03-20 11:14] VITALS: BMI 32.1
[~2024-03-21 10:32] MED LIST changes: -ALPRAZolam 0.25 MG TAB PO PRN; -ALPRAZolam 0.5 MG TAB PO PRN; -ASPIRIN 325 MG TAB PO STA; -HEPARIN SODIUM,PORCINE (1 ML) 2,500 UNIT in SODIUM CHLORIDE 0.9% 250 ML IRRIGATION PRN; -HEPARIN SODIUM,PORCINE 10,000 UNIT in SODIUM CHLORIDE 0.9% 1,000 ML IRRIGATION PRN; +LIDOCAINE 1% (10MG/ML) FOR IV START INTRADERMA PRN; -NITROGLYCERIN SL TABS 0.4 MG TAB SUBLINGUAL PRN
[2024-03-21 11:22] LABS: Glucose,Whole Blood 206 mg/dL (70-110)
[2024-03-21] MEDS: LACTATED RINGERS 1,000 ML IV SCH (11:22)
[2024-03-21] MEDS: ONDANSETRON 4 MG/2 ML VIAL IVP ONE ×2 (11:33→14:23)
[2024-03-21] MEDS: DEXAMETHASONE SOD PHOSPHATE 4 MG/ML 1 ML VIAL IVP ONE (11:33)
[2024-03-21 11:36] LABS: HGB 10.1 gm/dL (13.0-17.5); MCH 30.1 pg (25.0-35.0); MCHC 32.6 g/dL (31.0-37.0); MCV 92.3 fL (80.0-100.0); Mean Platelet Volume 11.5; Platelet Count 171 k/uL (150-450); RBC 3.36 m/uL (4.30-5.90); WBC 8.7 k/uL (3.8-10.6)
[2024-03-21 11:51] LABS: African American GFR (CKD) 16 (>60 ml/min/1.73 sqM); Anion Gap 12 mmol/L; Blood Urea Nitrogen 62 mg/dL (9-20); Calcium 8.8 mg/dL (8.4-10.2); Carbon Dioxide 20 mmol/L (22-30); Chloride 103 mmol/L (98-107); Glucose 188 mg/dL (74-99); Non-African American GFR(CKD) 13 (>60 ml/min/1.73 sqM); Sodium 135 mmol/L (137-145)
[2024-03-21] MEDS: SODIUM CHLORIDE 0.9% 500 ML 500 ML IV ONE (12:12)
[2024-03-21 12:16] LABS: Potassium 5.5 mmol/L (3.5-5.1)
[2024-03-21] MEDS ORDERED: SUCCINYLCHOLINE CHLORIDE 200 MG/10 ML VIAL IV ONE (13:16)
[2024-03-21] MEDS ORDERED: NEOSTIGMINE 1 MG/ML 10 ML VIAL ONE (13:16)
[2024-03-21] MEDS ORDERED: ROCURONIUM 10 MG/ML (5 ML VIAL) IV ONE (13:16)
[2024-03-21] MEDS ORDERED: GLYCOPYRROLATE 0.2 MG/ML 2 ML VIAL ONE (13:16)
[2024-03-21] MEDS ORDERED: fentaNYL (PF) 50 MCG/ML 2 ML AMP ONE (13:16)
[2024-03-21] MEDS ORDERED: LIDOCAINE 1% INJ 10MG/ML (20 ML MDV) ONE (13:16)
[2024-03-21] MEDS ORDERED: MIDAZOLAM 2 MG/2 ML VIAL ONE (13:16)
[2024-03-21] MEDS ORDERED: PROPOFOL 10 MG/ML 20 ML VIAL IV ONE (13:16)
[2024-03-21] MEDS ORDERED: HYDROmorphone (PF) 1 MG/ML ONE (13:16)
[2024-03-21] MEDS: SODIUM CHLORIDE 0.9% 950 ML IV ONE (14:16)
--- NOTE | 2024-03-21 14:22 | P.OP ---
Date of Procedure: 03/21/24 Preoperative Diagnosis: End-stage renal diseasedialysis dependent. Desirous of peritoneal dialysis. Postoperative Diagnosis: Same. Procedure(s) Performed: Placement of peritoneal dialysis catheter via the laparoscopic approach. Anesthesia: HOWIE Surgeon: David Guzman Estimated Blood Loss (ml): 5 Urine output (ml): 0 Pathology: none sent Condition: stable Disposition: no change Indications for Procedure: Patient is a 58-year-old male who recently was diagnosed with end-stage renal disease and is currently being dialyzed via a tunneled hemodialysis catheter. When considering long-term dialysis options the patient is desirous of peritoneal dialysis and thus patient was not offered peritoneal dialysis catheter. The procedure, risk and benefits were discussed with the patient. All questions were answered patient's satisfaction. Description of Procedure: Patient was brought the operating placed in the supine position and administered general inhalational anesthesia delivered by department anesthesiology. The pa tient's abdominal and pelvic anterior wall were sterilely prepped and draped in the usual manner. A small skin incision was made at the inferior border the umbilicus. Veress needle was inserted into the peritoneal cavity. Negative pressure failed to return any fluid and water drop test was positive. Pneumoperitoneum was then created with carbon oxide gas. The needle was then exchanged for a 5 [place] 0 degree dialysis catheter placed via the Visiport technique. Gross inspection of the abdominal pelvic contents was essentially unremarkable. To the right of the midline at the umbilical level skin incision was made through which a 8 [place] sheath was placed for skiving anteriorly to the pelvis for a few centimeters and then into the peritoneal cavity. This was confirmed with direct visualization. Subsequently peritoneal dialysis catheter was placed with the aid of a stylette into the pelvis. 500 mL of fluid were easily placed within the peritoneal cavity and was easily drained when the IV bag was placed at the ground level. Skin incision at the umbilicus was closed with 4-0 Vicryl in the intradermal layer and skin glue was then placed. At the peritoneal dialysis catheter in sertion site the deep dermis was closed with 3-0 Vicryl and skin was closed with 4-0 nylon placed in horizontal mattress form. The catheter was attached to appropriate tubing. Appropriate dressings were then applied. Patient tolerated the procedure well and was taken to the recovery in satisfactory and stable condition. Plan - Discharge Summary Discharge Rx Participant: No New Discharge Prescriptions: No Action Aspirin EC [Ecotrin] 325 mg PO BID hydrALAZINE HCL [Apresoline] 50 mg PO TID 30 Days #90 tab Pantoprazole [Protonix] 40 mg PO AC-BID 30 Days #60 tab Isosorbide Mononitrate ER [Imdur] 30 mg PO QAM Ipratropium-Albuterol Nebulize [Duoneb 0.5 mg-3 mg/3 ml Soln] 3 ml INHALATION RT-QID PRN PRN Reason: sob Atorvastatin [Lipitor] 40 mg PO DAILY Metoprolol Succinate [Metoprolol Succinate ER] 25 mg PO QAM Furosemide [Lasix] 20 mg PO DAILY 90 Days #90 tab Calcium Acetate [PhosLo] 667 mg PO TID-W/MEALS 30 Days #90 tab Insulin Glargine,Hum.rec.anlog [Toujeo Solostar] 10 units SQ TID Melatonin 10 mg PO HS Discharge Medication List Atorvastatin [Lipitor] 40 mg PO DAILY 12/14/23 [History] Metoprolol Succinate [Metoprolol Succinate ER] 25 mg PO QAM 12/14/23 [History] Aspirin EC [Ecotrin] 325 mg PO BID 12/16/23 [History] Calcium Acetate [PhosLo] 667 mg PO TID-W/MEALS 30 Days #90 tab 12/20/23 [Rx] Furosemide [Lasix] 20 mg PO DAILY 90 Days #90 tab 12/20/23 [Rx] Pantoprazole [Protonix] 40 mg PO AC-BID 30 Days #60 tab 12/20/23 [Rx] hydrALAZINE HCL [Apresoline] 50 mg PO TID 30 Days #90 tab 12/20/23 [Rx] Insulin Glargine,Hum.rec.anlog [Toujeo Solostar] 10 units SQ TID 03/20/24 [History] Ipratropium-Albuterol Nebulize [Duoneb 0.5 mg-3 mg/3 ml Soln] 3 ml INHALATION RT-QID PRN 03/20/24 [History] Isosorbide Mononitrate ER [Imdur] 30 mg PO QAM 03/20/24 [History] Melatonin 10 mg PO HS 03/20/24 [History]
[2024-03-21] MEDS ORDERED: KETOROLAC 15 MG/ML 1 ML VIAL IVP STA (14:23)
[2024-03-21 14:30] LABS: Glucose,Whole Blood 190 mg/dL (70-110)
[2024-03-21] MEDS: droPERidol 5 MG/2 ML VIAL IVP ONE (14:40)
[2024-03-21 14:42] VITALS: TEMP 97
[2024-03-21 16:14] VITALS: BP 161/88; PULSE 68; RESP 16
== END 2024-03-21 16:48 | disposition home or self-care (01) ==
LOC: OR 10:32
PROVIDERS: ATTEND Surgery
DX: I13.2 Hypertensive heart and chronic kidney disease with heart failure and with stage 5 chronic kidney disease, or end stage renal disease (principal); E11.22 Type 2 diabetes mellitus with diabetic chronic kidney disease; N18.6 End stage renal disease; I50.9 Heart failure, unspecified; F43.10 Post-traumatic stress disorder, unspecified; F90.9 Attention-deficit hyperactivity disorder, unspecified type; Z79.4 Long term (current) use of insulin; Z79.82 Long term (current) use of aspirin; Z79.899 Other long term (current) drug therapy; Z99.2 Dependence on renal dialysis
CPT/HCPCS: 80048; 85027; 49324; C1752; J2250; J0330; J1100; J2710; J0690; J2405; J2001; J3010; J1170; J2704; J1790

== ENCOUNTER → 2024-05-21 | Outpatient (CLI) | payer BC ==
[2024-05-21 14:51] LABS: HCT 39.9 % (39.6-50.0); HGB 12.8 g/dL (13.0-17.0); MCH 27.9 pg (27.0-32.0); MCHC 32.1 g/dL (32.0-37.0); MCV 87.1 FL (80.0-97.0); NRBC Per 100 WBC 0 X 10*3/uL (0.00-0.01); Platelet Count 182 X 10*3/uL (140-440); RBC 4.58 X 10*6/uL (4.40-5.60); RDW 13.9 % (11.5-14.5); WBC 9.55 X 10*3/uL (4.50-10.00)
[2024-05-21 15:31] LABS: Blood Urea Nitrogen 51.3 mg/dL (9.0-27.0); Carbon Dioxide 24.6 mmol/L (21.6-31.8); Chloride 98 mmol/L (96-109); Potassium 3.8 mmol/L (3.5-5.5); Sodium 140 mmol/L (135-145)
== END | disposition home or self-care (01) ==
LOC: LABWHC1 10:42
PROVIDERS: ATTEND Student in an Organized Health Care Education/Training Program
DX: Z01.812 Encounter for preprocedural laboratory examination (principal); I50.22 Chronic systolic (congestive) heart failure
CPT/HCPCS: 36415; 80051; 82565; 84520; 85027

== ENCOUNTER 2024-05-25 08:05 | Day surgery (SDC) | payer BC ==
[2024-05-23 17:58] VITALS: BMI 28.0
[~2024-05-25 08:05] MED LIST changes: +ALPRAZolam 0.25 MG TAB PO PRN; +ALPRAZolam 0.5 MG TAB PO PRN; +ASPIRIN 325 MG TAB PO STA; +HEPARIN SODIUM,PORCINE (1 ML) 2,500 UNIT in SODIUM CHLORIDE 0.9% 250 ML IRRIGATION PRN; +HEPARIN SODIUM,PORCINE 10,000 UNIT in SODIUM CHLORIDE 0.9% 1,000 ML IRRIGATION PRN; -LIDOCAINE 1% (10MG/ML) FOR IV START INTRADERMA PRN; +NITROGLYCERIN SL TABS 0.4 MG TAB SUBLINGUAL PRN; +SODIUM CHLORIDE 0.9% 1,000 ML in EMPTY BAG 1 BAG IV SCH
[2024-05-25] MEDS: SODIUM CHLORIDE 0.9% 1,000 ML IV ONE (08:21)
[2024-05-25 08:33] VITALS: RESP 16; TEMP 98
[2024-05-25 08:33] LABS: Glucose,Whole Blood 161 mg/dL (70-110)
[2024-05-25] MEDS ORDERED: LIDOCAINE 1% INJ 10MG/ML (20 ML MDV) ONE (09:06)
[2024-05-25] MEDS ORDERED: fentaNYL (PF) 50 MCG/ML 2 ML AMP ONE (09:06)
[2024-05-25] MEDS ORDERED: HEPARIN SODIUM 1,000 UN/ML (10ML VL) ONE (09:06)
[2024-05-25] MEDS ORDERED: VERAPAMIL 2.5 MG/ML 2 ML AMP ONE (09:06)
[2024-05-25] MEDS ORDERED: MORPHINE SULFATE 4 MG/ML SYRINGE ONE (09:09)
[2024-05-25] MEDS: HYDROmorphone 1 MG/ML 1 ML SYRINGE IVP ONE ×2 (09:27→09:45)
[2024-05-25] MEDS: LIDOCAINE 1% INJ 10MG/ML (20 ML MDV) SQ ONE (09:27)
[2024-05-25] MEDS: MIDAZOLAM 2 MG/2 ML VIAL IVP ONE (09:27)
[2024-05-25] MEDS: VERAPAMIL 2.5 MG/ML 2 ML AMP INTRAARTER ONE (09:38)
[2024-05-25] MEDS: HEPARIN SODIUM 1,000 UN/ML (10ML VL) MISCELLANE ONE (09:57)
[2024-05-25 10:06] LABS: O2 Sat Blood Gas 72.6 %
[2024-05-25 10:08] LABS: O2 Sat Blood Gas 94.5 %
[2024-05-25 10:09] LABS: O2 Sat Blood Gas 68.1 %
[2024-05-25 10:10] LABS: O2 Sat Blood Gas 66.4 %
[2024-05-25] MEDS: IOPAMIDOL-370 200ML BTL INTRATHECA ONE (10:13)
[2024-05-25] MEDS ORDERED: ONDANSETRON 4 MG/2 ML VIAL ONE (10:14)
[2024-05-25] MEDS: HEPARIN SODIUM,PORCINE (1 ML) 2,500 UNIT in SODIUM CHLORIDE 0.9% 250 ML IRRIGATION ONE (10:21)
[2024-05-25 10:24] LABS: Glucose,Whole Blood 158 mg/dL (70-110)
[2024-05-25] MEDS ORDERED: ONDANSETRON 4 MG/2 ML VIAL IM STA (14:05)
[2024-05-25] MEDS ORDERED: ONDANSETRON 4 MG/2 ML VIAL IVP STA (14:05)
[2024-05-25] MEDS: ONDANSETRON 4 MG/2 ML VIAL ONE (14:08)
[2024-05-25 17:15] VITALS: BP 140/66; PULSE 70
--- NOTE | 2024-05-25 19:03 | P.CARDCATH ---
Date of Procedure: 05/25/24 Description of Procedure: DIAGNOSTIC CORONARY ANGIOGRAPHY, RIGHT and LEFT HEART CATH REPORT PROCEDURES PERFORMED: Left heart catheterization Right heart catheterization Selective coronary angiography Moderate conscious sedation 40 mins [Ultrasound assisted] Right radial access INDICATION: Patient initially presented to cardiology clinic with signs symptoms of congestive heart failure. His first echocardiogram in October 2023 showed an EF of 40 to 45% with global hypokinesia. For this he was scheduled for heart catheterization procedure. His labs prior to cardiac cath showed evidence of MAT therefore the cardiac cath was postponed. In November his repeat limited echo showed reduction in his LVEF to 20 to 25%. Patient eventually got on hemodialysis with permacath but because of hypotension it was transitioned to peritoneal dialysis. Currently patient is stabilized on peritoneal dialysis and is tolerating well. For his worsening cardiomyopathy was scheduled for a heart catheterization procedure. Other than this he has past medical history of CKD stage IV on peritoneal dialysis, diabetic nephropathy, type 2 diabetes, essential hypertension, CONSENT: I have explained the procedural steps of above-mentioned procedures in layman's terms to the patient. I discussed the risks (including but not limited to stroke, emergent vascular or cardiac surgery or ), benefits and alternative therapies for the above-mentioned procedure. I discussed the risks of sedation/analgesia and blood product administration (if indicated). The patient has indicated understanding and acceptance of these risks. Conscious Sedation: Patient's ECG, heart rate, blood pressure, pulse oximetry were monitored throughout the duration of procedure under my direct supervision. 2 mg Versed and 2 mg Dilaudid were used for induction of moderate conscious sedation. Total duration of moderate concious sedation 40 minutes. PROCEDURE: After explaining the risks, benefits and alternatives of the above mentioned procedures in detail to the patient, informed consent was obtained. Patient was taken to the catheterization lab, prepped and draped in usual sterile fashion using universal precuations. Barbow and alfred test were performed to confirm adequate perfusion to fingers. Ultrasound was used to identify the radial artery. 1% lidocaine was infiltrated over the right radial artery. A 6-Frisian sheath was placed and secured in the right radial artery using modified Seldinger technique. The sheath was flushed and 5 mg verapamil was administered intra-arterially. 1% lidocaine was infiltrated in the antecubital. Right antecubital vein IV cannula was exchanged over the wire for a 6 Frisian slender glide sheath. The sheath was secured and flushed. Through the sheath a 6 Fr[place]ian [place] catheter was advanced under fluoroscopy. The catheter was advanced and the tip balloon was inflated. The catheter was advanced to the wedge position. The wedge pressures were obtained. The balloon was deflated and catheter was withdrawn so that the catheter tip stays in the pulmonary artery. Pulmonary artery pressures were obtained. Samples were collected. Thermodilution study was performed. The catheter tip was inflated and was withdrawn to right ventricle. Blood samples were obtained and pressures were obtained. The catheter was withdrawn to right atrium. Blood samples were obtained and pressures were obtained. The tip balloon was deflated and the [place] catheter was removed. J tipped wire was advanced under fluoroscopic guidance. Once the wire tip reached aortic root 6000 units of IV heparin was given. The wire a JL 3.5 diagnostic catheter was advanced. The wire was removed and the catheter was placed. The catheter was manipulated to selectively engage the left coronary ostium. Left coronary angiogram was performed in different angiographic projections. The catheter was exchanged for a JR 5 diagnostic catheter over the wire. With the help of the wire the catheter was prolapsed across the aortic valve to enter the LV. Wire was removed and catheter was flushed. LV pressures were obtained. The pullback was performed across the aortic valve. Catheter was manipulated to selectively engage the right coronary ostium. Right coronary angiogram was performed. Catheter was removed over the wire. Radial sheath was flushed. The right radial sheath was removed and a TR band was placed with excellent patent hemostasis was achieved. The patient tolerated the procedure well. Patient was transported back to the post catheterization holding area in stable condition. Angiographic images were reviewed in detail. Technical data Contrast used 60 mL Total radiation air kerma- 290 mGy No complication estimated blood loss less than 50 number HEMODYNAMICS: Right heart catheterization PCW pressure 10/5 mmHg. Mean PCW 5 mmHG PA pressure 25/10 mmHg, mean PA pressure 15 mmHg RV pressure 25/2 mmHg, RVEDP 5 mmHg Mean RA pressure 5 mmHg Arterial sat 95% PA sat 73% RA sat 68% RV sat 68% BSA 2.22 m, hemoglobin 11.6, heart rate 75 bpm Thermodilution cardiac output 6.4 L/min. Thermodilution cardiac index 2.88 L/min/m Jessie cardiac output 6.9 L/min, Jessie cardiac index 3.12 L/min/m Aortic Pressure: 131/61 mmHg. LV pressure: 140/5 mmHg. LVEDP 20 mmHg. There was no significant gradient across the aortic valve. SELECTIVE CORONARY ARTERIOGRAPHY: LEFT MAIN: The left main is a large caliber vessel which bifurcates into the LAD and circumflex. Left main appears angiographically normal. LEFT ANTERIOR DESCENDING CORONARY ARTERY: LAD is a large caliber vessel which wraps around to the apex. Proximal LAD has 20 to 30% diffuse calcific disease. Mid LAD has 40 to 50% diffuse calcific disease. Distal LAD has 70 to 80% diffuse calcific disease. Mid LAD gives cardiac branch which has moderate diffuse disease. LEFT CIRCUMFLEX CORONARY ARTERY: It is nondominant vessel. Proximal LCx has 30% diffuse calcific disease. It gives rise to a very small OM1 branch. Mid LCx bifurcates into a large OM 2 branch and AV groove branch. Just prior to the bifurcation there is a 80 to 90% calcific stenosis. OM 2 branch is a 2.5 mm vessel which has 60 to 70% disease in proximal segment and 60 to 70% disease in distal segment. AV groove branch has moderate diffuse calcific disease. RIGHT CORONARY ARTERY: 100% chronic total occluded in proximal segment. Appears to be dominant vessel. Left to right collaterals filling PDA and PL branch. Appears to have good targets. PDA appears to have mild to moderate diffuse disease IMPRESSION: 100% occluded proximal RCA 80 to 90% mid LCx 70 to 80% distal LAD. Moderate diffuse disease throughout Ischemic cardiomyopathy, Elevated LVEDP, normal wedge pressure. There was a discrepancy between wedge pressure and LVEDP. Possible LVEDP was overestimated because of faulty baseline zero. Preserved cardiac index and cardiac output PLAN: 75 cc/h for 4 hours. Discharged home in 4 hours. Routine postcardiac cath care. Family was updated about the finding. Patient will need CT surgery evaluation. Follow-up in cardiology clinic with Dr. Sanchez within next 1 week Performing Physician Florentino Sanchez MD, FACC, RPVI Thank you for allowing [facility] to participate in this patient's care. Feel free to reach out in case of any followup questions.
== END 2024-05-25 15:47 | disposition home or self-care (01) ==
LOC: CATHCVL 08:05
PROVIDERS: ATTEND Student in an Organized Health Care Education/Training Program
DX: I25.10 Atherosclerotic heart disease of native coronary artery without angina pectoris (principal); I50.22 Chronic systolic (congestive) heart failure; Z99.2 Dependence on renal dialysis; N18.4 Chronic kidney disease, stage 4 (severe); I25.82 Chronic total occlusion of coronary artery; I25.5 Ischemic cardiomyopathy; E11.22 Type 2 diabetes mellitus with diabetic chronic kidney disease
CPT/HCPCS: 93460; 85018; 82810; C1769 ×2; C1894; C1751; J2250; J1644 ×2; J2405; J2001; J1170; Q9967